=== PATIENT | male | born 1945 | race Caucasian/White ===

== ENCOUNTER 2016-09-16 07:36 | Inpatient (IN) ==
[2016-09-16 08:13] LABS: Basophils # 0.1 K/mcL (0.0-0.2); Basophils % 0.4 %; Eosinophils # 0.1 K/mcL (0.0-0.6); Eosinophils % 0.4 %; Hematocrit 45.9 % (37.5-50.1); Hemoglobin 15.9 g/dL (12.9-16.9); Immature Granulocytes % 0.5 % (0-4); Lymphocytes # 1.5 K/mcL (0.6-4.6); Lymphocytes % 12.4 %; Mean Corpuscular HGB Conc 34.6 g/dL (31.6-35.5); Mean Corpuscular Hemoglobin 30.3 pg (28.0-33.3); Mean Corpuscular Volume 87.6 fL (83.0-100.0); Mean Platelet Volume 9.2 fL (9.4-12.4); Monocytes # 0.7 K/mcL (0.0-1.3); Monocytes % 5.9 %; Neutrophils # 9.4 K/mcL (1.6-8.9); Platelet Count 220 K/mcL (140-400); Red Blood Count 5.24 M/mcL (4.19-5.50); Red Cell Distribution Width 13.4 % (11.5-14.5); Segmented Neutrophils % 80.4 %
[2016-09-16 08:18] LABS: INR 1.1; Prothrombin Time 12.2 Seconds (9.4-12.1)
[2016-09-16 08:20] LABS: Activated Partial Thrombo Time 28.1 Seconds (26.0-36.0)
[2016-09-16] MEDS ORDERED: *HR* HYDROmorphone (PF) 1 MG/ML SYRINGE IVP ONE ×2 (08:21→09:31)
[2016-09-16] MEDS ORDERED: Ondansetron 4 MG/2 ML VIAL IVP ONE (08:21)
[2016-09-16] MEDS ORDERED: Aspirin 81 MG TAB.CHEW PO ONE (08:22)
[2016-09-16 08:26] LABS: BUN/Creatinine Ratio 24 (6-26); Blood Urea Nitrogen 28 mg/dL (8-26); Calcium 9.4 mg/dL (8.6-10.8); Carbon Dioxide 18 mEq/L (19-29); Chloride 101 mEq/L (98-109); Glucose 294 mg/dL (70-99); Osmolality,Calculated 296 (280-300); Potassium 4.5 mEq/L (3.5-4.5); Sodium 135 mEq/L (136-145); eGFR For African Americans > 60 (> 60); eGFR For Non-African Americans > 60 (> 60)
--- NOTE | 2016-09-16 08:32 | Emergency Department Note ---
Disposition Clinical Impression: Chest pain, Terrance infection of genital region Disposition: Admitted As Inpatient Condition: Fair Time of Disposition: 10:05 Chest Pain HPI - General Chief Complaint: ED Chest Pain Stated Complaint: Chest Pain Time Seen by Provider: 09/16/16 07:39 Source: patient, family Mode of arrival: ambulatory Limitations: no limitations Vital Signs Reviewed: Yes Nursing Notes Reviewed: Yes - History of Present Illness HPI Narrative: Patient is a 71-year-old male with a past medical history of hypertension, diabetes, heart disease, GERD, [place] and kidney stones that presents the ED with chief complaint intermittent left-sided chest pain and left flank pain with associated nausea and vomiting and shortness of breath x 2 days. States symptoms became more severe and persistent this morning. Describes pain as heaviness to the left side of his chest with intermittent radiation down his left arm. States similar symptoms previously with a heart attack. Patient denies any fever, abdominal pain, chills, diarrhea or cough. Does report some dysuria. States he was recently diagnosed with a yeast infection in his groin. Patient was prescribed fluconazole but has not taken any of the medication yet secondary to just picking up from the pharmacy this morning per . Pt complaint: chest pain Onset (ago): day(s) Duration: constant Onset: during rest Pain Location: left chest Severity: severe Severity scale (1-10): 10 Quality: heaviness, dull, similar to prior [place] Pain Radiation: LUE Improves with: nothing Worsens with: nothing Associated symptoms: Reports: nausea, vomiting, dyspnea. Denies: diaphoresis, sense of impending doom, syncope, palpitations, fever, cough, leg swelling Treatments prior to arrival chest pain: aspirin ( states she gave him an aspirin prior to arrival but he vomited it up.) - Related Data Home Medications Medication Instructions Recorded Confirmed Aspirin Enteric Coated [Aspirin EC] 81 mg PO DAILY 02/08/15 09/16/16 Gabapentin [Neurontin] 300 mg PO TID 02/08/15 09/16/16 Insulin Glargine [Lantus] 100 units SQ QPM 02/08/15 09/16/16 Levothyroxine [Synthroid] 50 mcg PO QAM 02/08/15 09/16/16 Potassium Citrate [Urocit-K] 10 meq PO BID 02/08/15 09/16/16 Tamsulosin [Flomax] 0.4 mg PO DAILY 02/08/15 09/16/16 Atorvastatin Calcium [Lipitor] 80 mg PO HS 09/16/16 09/16/16 BuPROPion SR (12 HR) [Wellbutrin 200 mg PO BID 09/16/16 09/16/16 SR] Fluconazole [Diflucan] 100 mg PO DAILY 09/16/16 09/16/16 Losartan Potassium [Cozaar] 50 mg PO DAILY 09/16/16 09/16/16 Metformin HCl [Metformin HCl ER] 1,000 mg PO BID 09/16/16 09/16/16 Anshu/Poly/HC *EAR* SOLN 3 - 4 drop LEFT EAR BID 09/16/16 09/16/16 [Cortisporin *EAR* SOLN] Nystatin POWDER [Nystop] 1 appl TP BID 09/16/16 09/16/16 Sertraline [Zoloft] 100 mg PO DAILY 09/16/16 09/16/16 Allergies Allergy/AdvReac Type Severity Reaction Status Date / Time aspirin [ASA] Allergy Swelling Verified 11/21/14 12:58 of Lip/Tongue/Throat metoprolol [From Lopressor] Allergy See Verified 11/21/14 12:58 Comments morphine Allergy See Verified 11/21/14 12:58 Comments All systems ED: reviewed and negative except as stated. Constitutional: Denies: fever, chills, weakness Eyes: Denies: eye pain, eye discharge ENT ED: Denies: ear pain, throat pain, congestion Cardiovascular: Reports: chest pain. Denies: palpitations, dyspnea on exertion , orthopnea, edema, syncope, paroxysmal nocturnal dyspnea Respiratory: Reports: dyspnea. Denies: cough, wheezes, hemoptysis, sputum production Gastrointestinal: Reports: nausea, vomiting. Denies: abdominal pain, diarrhea, constipation, hematemesis, melena, hematochezia Genitourinary: Reports: dysuria. Denies: urgency, frequency, hematuria, discharge, testicular pain, genital lesions Musculoskeletal: Reports: back pain (Left flank pain) Integumentary: Denies: rash Neurological: Reports: weakness (Analyze weakness). Denies: headache, numbness , paresthesias Endocrine: Denies: fatigue Chest Pain PMH - Past Medical History Medical history: Reports: arthritis, diabetes, GERD, hypertension, kidney stones , myocardial infarction, thyroid disease Surgical history: Reports: angioplasty/stent, herniorrhaphy, other Psychiatric history: Reports: depression - Social History Smoking Status: Former smoker Alcohol use: Reports: none Drug use: Reports: none Physical Exam - General Limitations: no limitations General appearance: alert, other (Mild discomfort) - Head Head exam: atraumatic, normocephalic, normal inspection - Eye Eye exam: Present: normal appearance - ENT ENT exam: normal oropharynx, mucous membranes moist - Neck Neck exam: Present: normal inspection, full ROM. Absent: tenderness, meningismus - Chest Chest inspection: Present: normal inspection, symmetric chest wall rise. Absent : tenderness, rash - Respiratory Respiratory exam: Present: normal lung sounds bilaterally. Absent: respiratory distress, wheezes, stridor, accessory muscle use, prolonged expiratory phase - Cardiovascular Cardiovascular exam: Present: regular rate, normal rhythm, normal heart sounds - Abdominal Exam Abdominal exam: Present: soft, Non-Tender, normal bowel sounds. Absent: tenderness, distention, guarding, rebound, rigidity - Extremities Exam Extremities exam: Present: normal inspection, full ROM. Absent: tenderness, pedal edema - Expanded Lower Extremity Exam Gait: observed and normal - Back Exam Back exam: Present: normal inspection, full ROM, tenderness, CVA tenderness (R) , CVA tenderness (L), muscle spasm (lumbar), paraspinal tenderness (lumbar), vertebral tenderness (lumbar). Absent: rashes - Neurological Exam Neurological exam: Present: alert, oriented X3, CN II-XII intact - Psychiatric Psychiatric exam: Present: normal affect, normal mood - Skin Skin exam: Present: warm, dry, intact, normal color. Absent: rash, cyanosis, diaphoresis Course Course Narrative: Patient is a 71-year-old male with a past medical history of hypertension, diabetes, heart disease, GERD, [place] and kidney stones that presents the ED with chief complaint intermittent left-sided chest pain and left flank pain with associated nausea and vomiting and shortness of breath x 2 days. States symptoms became more severe and persistent this morning. Describes pain as heaviness to the left side of his chest with intermittent radiation down his left arm. States similar symptoms previously with a heart attack. Patient denies any fever, abdominal pain, chills, diarrhea or cough. Does report some dysuria. States he was recently diagnosed with a yeast infection in his groin. Patient was prescribed fluconazole but has not taken any of the medication yet secondary to just picking up from the pharmacy this morning per . Patient is a 71-year-old male. Vital stable. Afebrile. Alert and oriented 3. Appears in no acute distress. Head normocephalic. No signs of external trauma. Eyes normal inspection. PERRL. EOM intact. ENT within normal limits. Neck supple, full range of motion, nontender. Heart RRR. Lungs CTAB. No wheezing, stridor, retractions or any signs of respiratory distress/ compromise. Normal rise and fall chest wall. Abdomen obese, uncomplicated umbilical hernia. non tender. Normal bowel sounds. Back normal inspection, lumbar paraspinal muscle/vert point tenderness. Reproducible pain with palpation to left and right flank. States he always has back pain secondary to a herniated disc. Genital exam performed with at bedside. Patient does has terrance noted to left and right groin region. No penile or scrotum involved. No secondary infection noted. Neuro no focal neurological deficits noted on exam. Workup Initiated at this time. EKG sinus bradycardia. Reviewed previous EKG from 05/19/2014. Discussed aspirin allergy with and patient. Patient and states he is really not allergic. states occasionally they think it causes his genital region to swell. states he takes it all the time without any issues. Risk vs benefits discussed. ASA given. Dilaudid given for pain. Plan to reevaluate. Chest x-ray shows no acute cardiopulmonary abnormalities. Trop 0.02 CT abdomen and pelvis with IV contrast shows asymmetric wall thickening at the left bladder wall and circumferential thickening of the left ureter, similar to the prior exam in 2014. Findings are nonspecific and could be postinflammatory. A urothelial neoplasm should be excluded. Left renal nonobstructing 13 mm calculus. No hydroureteronephrosis. No acute abnormalities in the abdomen or pelvis. UA moderate blood, large leuks, moderate epithelial cells, urine bacteria none seen. Will culture at this time. Will not place pt on Diflucan 150 mg and no other antibiotics at this time. HEART SCORE 6. Discussed labs and imaging with patient. Patient was given additional Dilaudid for pain. Pain is now a 0 out of 10. At this time will admit to medicine for a chest pain rule out. Patient and agree with treatment plan. Discussed case with the Hospitalist. He will accept pt. No other request at this time. Discussed case with Dr. Benedict. He had [id number] time with patient and agrees with my assessment and treatment plan. Vital Signs Temperature 98.0 F 09/16/16 07:46 Pulse Rate 58 09/16/16 07:46 Respiratory Rate 18 09/16/16 07:46 Blood Pressure 145/67 09/16/16 07:46 O2 Sat by Pulse Oximetry 100 09/16/16 07:46 Temperature 98.0 F 09/16/16 07:46 Pulse Rate 58 09/16/16 09:58 Respiratory Rate 18 09/16/16 09:58 Blood Pressure 150/74 09/16/16 09:58 O2 Sat by Pulse Oximetry 98 09/16/16 09:58 Oxygen Delivery Oxygen Delivery Room Air Chest Pain - Medical Records Medical records reviewed: Yes I reviewed the patient's medical records. - Lab Data Lab results reviewed: Yes I reviewed the patient's lab results. Result diagrams: 09/16/16 08:05 09/16/16 08:05 Lab Results 09/16/16 09/16/16 09/16/16 Range/Units 07:50 08:05 08:05 WBC 11.7 H (4.3-11.1) K/mcL RBC 5.24 (4.19-5.50) M/mcL Hgb 15.9 (12.9-16.9) g/dL Hct 45.9 (37.5-50.1) % MCV 87.6 (83.0-100.0) fL MCH 30.3 (28.0-33.3) pg MCHC 34.6 (31.6-35.5) g/dL RDW 13.4 (11.5-14.5) % Plt Count 220 (140-400) K/mcL MPV 9.2 L (9.4-12.4) fL Immature Gran % 0.5 (0-4) % Seg Neutrophils % 80.4 % Lymphocytes % 12.4 % Monocytes % 5.9 % Eosinophils % 0.4 % Basophils % 0.4 % Neutrophils # 9.4 H (1.6-8.9) K/mcL Lymphocytes # 1.5 (0.6-4.6) K/mcL Monocytes # 0.7 (0.0-1.3) K/mcL Eosinophils # 0.1 (0.0-0.6) K/mcL Basophils # 0.1 (0.0-0.2) K/mcL PT 12.2 H (9.4-12.1) Seconds INR 1.1 APTT 28.1 (26.0-36.0) Seconds Sodium (136-145) mEq/L Potassium (3.5-4.5) mEq/L Chloride (98-109) mEq/L Carbon Dioxide (19-29) mEq/L BUN (8-26) mg/dL Creatinine (0.72-1.25) mg/dL Est GFR ( Amer) (> 60) Est GFR (Non-Af Amer) (> 60) BUN/Creatinine Ratio (6-26) Glucose (70-99) mg/dL POC Glucose 277 H (58-89) Calculated Osmolality (280-300) Calcium (8.6-10.8) mg/dL Troponin I (0-0.03) ng/mL Urine Color (Yellow) Urine Clarity (Clear) Urine pH (5.0-8.0) pH Units Ur Specific [place] (1.010-1.025) Urine Protein (Neg-Trace) mg/dL Urine Glucose (UA) (Normal) mg/dL Urine Ketones (Negative) mg/dL Urine Blood (Negative) Urine Nitrite (Negative) Urine Bilirubin (Negative) Urine Urobilinogen (Normal) mg/dL Ur Leukocyte Esterase (Negative) Urine Microscopic RBC (0-3) per hpf Urine Microscopic WBC (0-3) per hpf Ur Squamous Epith Cells (None-Few) per lpf Urine Bacteria (None-Few) per hpf Hyaline Casts (None-Few) per lpf Urine Yeast (None Seen) per hpf Ur Culture Indicated? (NO) 09/16/16 09/16/16 09/16/16 Range/Units 08:05 08:05 08:48 WBC (4.3-11.1) K/mcL RBC (4.19-5.50) M/mcL Hgb (12.9-16.9) g/dL Hct (37.5-50.1) % MCV (83.0-100.0) fL MCH (28.0-33.3) pg MCHC (31.6-35.5) g/dL RDW (11.5-14.5) % Plt Count (140-400) K/mcL MPV (9.4-12.4) fL Immature Gran % (0-4) % Seg Neutrophils % % Lymphocytes % % Monocytes % % Eosinophils % % Basophils % % Neutrophils # (1.6-8.9) K/mcL Lymphocytes # (0.6-4.6) K/mcL Monocytes # (0.0-1.3) K/mcL Eosinophils # (0.0-0.6) K/mcL Basophils # (0.0-0.2) K/mcL PT (9.4-12.1) Seconds INR APTT (26.0-36.0) Seconds Sodium 135 L (136-145) mEq/L Potassium 4.5 (3.5-4.5) mEq/L Chloride 101 (98-109) mEq/L Carbon Dioxide 18 L (19-29) mEq/L BUN 28 H (8-26) mg/dL Creatinine 1.19 (0.72-1.25) mg/dL Est GFR ( Amer) > 60 (> 60) Est GFR (Non-Af Amer) > 60 (> 60) BUN/Creatinine Ratio 24 (6-26) Glucose 294 H (70-99) mg/dL POC Glucose (58-89) Calculated Osmolality 296 (280-300) Calcium 9.4 (8.6-10.8) mg/dL Troponin I 0.02 (0-0.03) ng/mL Urine Color Yellow (Yellow) Urine Clarity Turbid A (Clear) Urine pH 6.0 (5.0-8.0) pH Units Ur Specific [place] > 1.030 H (1.010-1.025) Urine Protein 30 H (Neg-Trace) mg/dL Urine Glucose (UA) >=1000 H (Normal) mg/dL Urine Ketones 80 H (Negative) mg/dL Urine Blood Moderate H (Negative) Urine Nitrite Negative (Negative) Urine Bilirubin Negative (Negative) Urine Urobilinogen Normal (Normal) mg/dL Ur Leukocyte Esterase Large H (Negative) Urine Microscopic RBC 0-3 (0-3) per hpf Urine Microscopic WBC TNTC H (0-3) per hpf Ur Squamous Epith Cells Moderate H (None-Few) per lpf Urine Bacteria None Seen (None-Few) per hpf Hyaline Casts Few (None-Few) per lpf Urine Yeast Many H (None Seen) per hpf Ur Culture Indicated? YES A (NO) - Radiology Data Radiology results reviewed: Yes I reviewed the patient's radiology results. - EKG Data EKG attestation: Yes I reviewed and interpreted this EKG. EKG shows normal: sinus rhythm Rate: bradycardia Rhythm: NSR [place]/QRS: normal When compared to previous EKG there are: no significant changes Interpretation: no acute changes Heart Score - Score History: Highly Suspicious EKG: Normal Age: Greater than 65 Risk Factors: Equal/Greater than 3 risk factor or history of atherosclerotic disease Troponin: Less than normal limit HEART Score Total: 6 Attestation Statement - Attestation Attestation: [id number] time completed at the bedside of the patient. Detailed review the presentation symptoms medical history were discussed and reviewed with the mid- level provider Melissa Benedict PA-C/YASMIN. Medical intervention labs and imaging studies were reviewed in detail. See full documentation of physical exam and course of care in the mid-level provider's note. I agree with the determined course of care medical intervention and disposition forth by the mid-level provider. 73-year-old male presents emergency room complaining of left-sided flank pain radiating up in his left chest wall. Described it as similar to his previous heart attack. Multiple stenting performed in the past. Patient also has a nonobstructive renal calculi in the left kidney that he knows is present. He is unsure which one it is at this time but was more concerned about his heart. Detailed evaluation including cardiac evaluation with ECG chest x-ray were ordered. Troponin and basic laboratory workup including urinalysis ordered this time. Aspirin to be given and allergies reviewed and is not truly an allergy and patient takes aspirin at home. CT imaging of the abdomen was reviewed in detail showing no acute signs of obstructive pathology mild inflammation of bladder wall but nothing else intra-abdominally. No acute signs of aneurysm or dissection based on exam. Symptoms of uncontrolled. Vital signs are stable patient is chronically bradycardic but otherwise has no other acute symptoms or distress. Concern is noted for acute coronary syndrome requiring rule out at this time. His heart score is elevated at 6. Detailed discussion was reviewed with the mid-level provider Melissa and recommendation for admission to be completed. Patient is comfortable with this plan. I discussed this in detail with the patient and family at the bedside. No other acute pathology noted during this evaluation or treatment course requiring further intervention. Symptoms could be secondary to renal colic or acute coronary syndrome disposition to be determined while patient palacios reviewed and evaluated in the inpatient setting.s
[2016-09-16 09:32] LABS: Bilirubin,Urine Negative (Negative); Blood,Urine Moderate (Negative); Clarity,Urine Turbid (Clear); Color,Urine Yellow (Yellow); Glucose,Urine (UA) >=1000 mg/dL (Normal); Ketones,Urine 80 mg/dL (Negative); Leukocyte Esterase,Urine Large (Negative); Nitrite,Urine Negative (Negative); Protein,Urine 30 mg/dL (Neg-Trace); Specific Gravity,Urine > 1.030 (1.010-1.025); Urobilinogen,Urine Normal (Normal)
[2016-09-16 09:35] LABS: Bacteria,Urine None Seen per hpf (None-Few); Hyaline Casts,Urine Few per lpf (None-Few); Squamous Epithelial Cell,Urine Moderate per lpf (None-Few); WBC,Urine TNTC per hpf (0-3)
[2016-09-16 09:47] LABS: RBC,Urine 0-3 per hpf (0-3); Yeast,Urine Many per hpf (None Seen)
[2016-09-16] MEDS ORDERED: Fluconazole 100 MG TABLET PO ONE (09:53)
[2016-09-16] MEDS ORDERED: Ondansetron 4 MG/2 ML VIAL IVP PRN (11:36)
[2016-09-16] MEDS ORDERED: Acetaminophen 325 MG TABLET PO PRN (11:36)
[2016-09-16] MEDS ORDERED: Naloxone 0.4 MG/ML INJ IVP PRN (11:36)
[2016-09-16] MEDS ORDERED: *HR* Morphine 2 MG/ML SYRINGE IVP PRN ×2 (11:36→12:27)
[2016-09-16] MEDS ORDERED: Dextrose Gel 15 GM PO PRN ×2 (11:41)
[2016-09-16] MEDS ORDERED: *HR* Dextrose 50 % in Water (Syg) 50 ML SYRINGE IVP PRN (11:41)
[2016-09-16] MEDS ORDERED: D5% in Water 1,000 ML IVC PRN (11:41)
[2016-09-16] MEDS ORDERED: Nitroglycerin 0.4 MG TAB.SUBL SL PRN (11:54)
[2016-09-16] MEDS ORDERED: Insulin LISPRO 300 UNITS/3 ML VIAL SQ SCH ×2 (12:00→17:00)
--- NOTE | 2016-09-16 12:07 | Internal Med History&Physical ---
Date of Encounter: 09/16/16 Time of Encounter: 11:45 Assessment and Plan (1) Chest pain Current visit: Yes Status: Acute Left-sided Chest pain with radiation to her left upper extremity - rule out ACS Continue aspirin and statin Echocardiogram pending Stress test pending EKG - normal sinus rhythm with no acute ST-T changes Troponin - 0.02, trend Chest x-ray - no acute cardio pulmonary process CT abdomen and pelvis - left renal nonobstructing 13 mm renal calculus, no other acute abnormalities Labs in a.m. Qualifiers: Chest pain type: unspecified Qualified Code(s): R07.9 - Chest pain, unspecified (2) Renal calculi Current visit: Yes Status: Acute History of recurrent renal calculi CT abdomen and pelvis - left renal nonobstructing 13 mm calculus with no hydroureteronephrosis Urology consult (3) UTI (urinary tract infection) Current visit: Yes Status: Acute UTI present on admission, possibly gram-negative bacteria, possibly due to renal calculi UA - leukocyte esterase positive Empiric IV Rocephin Cultures pending Qualifiers: Urinary tract infection type: acute cystitis Hematuria presence: without hematuria Qualified Code(s): N30.00 - Acute cystitis without hematuria (4) CAD (coronary artery disease) Current visit: Yes Status: Chronic History of [place] - status post stents Continue aspirin and statin Qualifiers: Coronary Disease-Associated Artery/Lesion type: unspecified vessel or lesion type [place] vs. transplanted heart: [place] heart Associated angina: with unspecified angina Qualified Code(s): I25.119 - Atherosclerotic heart disease of [place] coronary artery with unspecified angina pectoris (5) Hypertension Current visit: Yes Status: Chronic Essential hypertension, controlled, continue home meds, monitor Qualifiers: Hypertension type: essential hypertension Qualified Code(s): I10 - Essential (primary) hypertension (6) Type 2 diabetes mellitus Current visit: Yes Status: Chronic Type 2 diabetes, insulin-dependent, hypoglycemia Insulin sliding scale, Levemir, glucose checks Qualifiers: Diabetes mellitus complication status: without complication Diabetes mellitus nursing home insulin use: with nursing home use Qualified Code(s): E11.9 - Type 2 diabetes mellitus without complications; Z79.4 - termite treater helper (current) use of insulin (7) Catherine infection of genital region Current visit: Yes Status: Acute Continue fluconazole (8) DVT prophylaxis Current visit: Yes Status: Acute Continue heparin subcutaneous Internal Medicine - H&P: HPI Chief complaint: Chest pain Admitted From: Emergency Dept History of present illness: Mr. Pate is a 71 year old male with past medical history of diabetes, GERD, hypertension, coronary artery disease status post stents, arthritis, thyroid disease, depression and history of kidney stones. Patient presents to the ED with complaints of left-sided chest pain and left flank pain. Symptoms started about 2 days ago and have gradually worsened. Patient apparently woke up this morning had about 4 episodes of vomiting and complained about severe chest pain which was radiating to left upper extremity. No aggravating or alleviating factors. No other associated symptoms. Pain is almost constant and present even at rest. Patient denies shortness of breath, denies palpitations, denies headache or lightheadedness denies abdominal pain or diarrhea or fever. No other complaints In the ER patient was given Dilaudid and aspirin, and patient's pain has now resolved. On examination patient is awake and alert. He is not in any distress. Able to provide history. is at bedside and she also provides history. Patient had an TN and 2 stents in the past. As per patient also has recurrent renal calculi and has had procedures done in the past. He was also recently diagnosed with a yeast infection in his groin and has been prescribed fluconazole by his PCP. Patient takes aspirin and atorvastatin at home. Initial EKG done in the ER shows sinus pericardia and no acute ST-T changes. Chest x-ray does not show any acute cardiopulmonary abnormalities. Initial troponin is negative. His abdomen revealed left renal nonobstructing 13 mm calculus with no hydroureteronephrosis. Patient is being admitted for chest pain to rule out ACS. Nuclear stress test has been ordered. Troponin to be trended. Repeat EKG in a.m. Patient and his have been explained about his condition and plan of care. They understood and agreed. No unanswered questions. CODE STATUS full code. Past Med Surg Social Fam HX - Past Medical History Medical history: arthritis, diabetes, GERD, hypertension, kidney stones, myocardial infarction, thyroid disease Psychiatric history: depression - Past Surgical History Surgical History: angioplasty/stent, cataract, herniorrhaphy, other - Social History Smoking Status: Former smoker Smokeless Tobacco Status: No Alcohol use: none Drug use: none - Family History Mother Hx Family Cardiac Disorders: Yes Hx Family Cancer: Yes ("Female") Hx Family Endocrine Disorder: Yes (DM) Father Hx Family Cancer: Yes (Bladder) Internal Medicine - H&P: Meds Aspirin Enteric Coated [Aspirin EC] 81 mg PO DAILY 02/08/15 [History] Gabapentin [Neurontin] 300 mg PO TID 02/08/15 [History] Insulin Glargine [Lantus] 100 units SQ QPM 02/08/15 [History] Levothyroxine [Synthroid] 50 mcg PO QAM 02/08/15 [History] Potassium Citrate [Urocit-K] 10 meq PO BID 02/08/15 [History] Tamsulosin [Flomax] 0.4 mg PO DAILY 02/08/15 [History] Atorvastatin Calcium [Lipitor] 80 mg PO HS 09/16/16 [History] BuPROPion SR (12 HR) [Wellbutrin SR] 200 mg PO BID 09/16/16 [History] Fluconazole [Diflucan] 100 mg PO DAILY 09/16/16 [History] Losartan Potassium [Cozaar] 50 mg PO DAILY 09/16/16 [History] Metformin HCl [Metformin HCl ER] 1,000 mg PO BID 09/16/16 [History] Anshu/Poly/HC *EAR* SOLN [Cortisporin *EAR* SOLN] 3 - 4 drop LEFT EAR BID [History] Nystatin POWDER [Nystop] 1 appl TP BID 09/16/16 [History] Sertraline [Zoloft] 100 mg PO DAILY 09/16/16 [History] Allergies aspirin [ASA] Allergy (Verified 11/21/14 12:58) Swelling of Lip/Tongue/Throat metoprolol [From Lopressor] Allergy (Verified 11/21/14 12:58) See Comments No reaction listed per H&P morphine Adverse Reaction (Verified 09/16/16 12:26) See Comments Vomiting All Systems PM: A 10-system review of systems was performed and is negative for pertinent findings except as documented above in the HPI. - Constitutional Constitutional: fatigue, weakness, no fever(s) - EENT Eyes: no blurry vision, no loss of vision - Cardiovascular Cardiovascular ROS IM: chest pain, no diaphoresis, no dyspnea, no dyspnea on exertion, no orthopnea, no syncope - Respiratory Respiratory: no dyspnea, no dyspnea on exertion, no wheezing, no chest congestion - Gastrointestinal Gastrointestinal: abdominal pain, nausea, vomiting, no cramping, no diarrhea, no melena - Genitourinary Genitourinary ROS male: flank pain (Left-sided), no dysuria - Musculoskeletal Musculoskeletal ROS IM: no arthralgias - Neurological Neurological ROS: no abnormal gait, no abnormal speech, no focal weakness, no loss of vision, no weakness - Constitutional Vitals: Temp Pulse Resp BP Pulse Ox 97.5 F L 56 15 151/77 95 09/16/16 11:15 09/16/16 11:15 09/16/16 11:15 09/16/16 11:15 09/16/16 11:15 General appearance: Present: A&O X 3, pleasant, no acute distress, obese, answers questions appropriately - Head Head exam: Present: atraumatic - Eye Eye exam: Present: EOMI - Neck Neck exam general surgery: Present: supple - Respiratory Respiratory exam: Present: CTAB. Absent: rales, rhonchi, wheezes, tachypnea - Cardiovascular Cardiovascular exam: Present: RRR, +S1, +S2 - GI/Abdominal GI/Abdominal exam: Present: soft, no peritoneal signs. Absent: distended, firm , guarding, rigid, tenderness Additional comments: No left flank tenderness - Extremities Exam Extremities exam: Present: radial pulses palpable and symetrical. Absent: cyanotic, pedal edema, tenderness - Neurological Exam Neurological exam: Present: alert, oriented X3, no focal deficits Internal Med - H&P Results - Labs CBC & Chem 7: 09/16/16 08:05 09/16/16 08:05
[2016-09-16] MEDS: *HR* Heparin 5,000 UNIT/ML VIAL SQ SCH ×2 (12:42→17:33)
[2016-09-16 12:51] LABS: Hemoglobin A1C 7.2 %
[2016-09-16] MEDS: Insulin LISPRO 300 UNITS/3 ML VIAL SQ SCH ×3 (12:53→21:25)
[2016-09-16] MEDS: Gabapentin 300 MG CAPSULE PO SCH ×3 (15:24→20:53)
[2016-09-16] MEDS: Famotidine 20 MG TABLET PO SCH ×2 (15:24→15:27)
[2016-09-16] MEDS: Insulin DETEMIR 100 UNIT/ML X5UNITS SQ SCH (17:54)
[2016-09-16] MEDS: BuPROPion SR (12 HR) 100 MG TABLET PO SCH (20:52)
[2016-09-16] MEDS: Nystatin POWDER 30 GM BOTTLE TP SCH (20:53)
[2016-09-16] MEDS: Potassium Citrate 10 MEQ TABLET.ER PO SCH (20:53)
[2016-09-17 05:38] LABS: Basophils # 0.1 K/mcL (0.0-0.2); Basophils % 0.3 %; Eosinophils % 0.1 %; Hematocrit 42.8 % (37.5-50.1); Hemoglobin 14.6 g/dL (12.9-16.9); Immature Granulocytes % 0.3 % (0-4); Lymphocytes # 1.4 K/mcL (0.6-4.6); Lymphocytes % 9.3 %; Mean Corpuscular HGB Conc 34.1 g/dL (31.6-35.5); Mean Corpuscular Volume 90.9 fL (83.0-100.0); Mean Platelet Volume 9.5 fL (9.4-12.4); Monocytes # 1.4 K/mcL (0.0-1.3); Monocytes % 9.4 %; Neutrophils # 11.9 K/mcL (1.6-8.9); Platelet Count 175 K/mcL (140-400); Red Blood Count 4.71 M/mcL (4.19-5.50); Red Cell Distribution Width 13.7 % (11.5-14.5); Segmented Neutrophils % 80.6 %
[2016-09-17] MEDS: *HR* Heparin 5,000 UNIT/ML VIAL SQ SCH ×2 (05:41→17:12)
[2016-09-17] MEDS ORDERED: Regadenoson 0.4 MG/5 ML SYRINGE IVP ONE (05:46)
[2016-09-17 05:56] LABS: BUN/Creatinine Ratio 22 (6-26); Blood Urea Nitrogen 22 mg/dL (8-26); Calcium 9.1 mg/dL (8.6-10.8); Carbon Dioxide 25 mEq/L (19-29); Chloride 103 mEq/L (98-109); Chol/HDL Ratio 2.2 (0-4.9); Glucose 156 mg/dL (70-99); HDL Cholesterol 36 mg/dL (40-59); LDL Cholesterol,Calculated 29 mg/dL (0-99); Osmolality,Calculated 287 (280-300); Potassium 4.1 mEq/L (3.5-4.5); Sodium 135 mEq/L (136-145); Triglycerides 69 mg/dL (< 150); eGFR For African Americans > 60 (> 60); eGFR For Non-African Americans > 60 (> 60)
[2016-09-17 06:04] LABS: Cholesterol 79 mg/dL (< 200)
--- NOTE | 2016-09-17 06:48 | Urology - Consult Note ---
Date of Encounter: 09/17/16 Time of Encounter: 06:46 - Assessment and Plan (1) Bladder wall thickening Current Visit: Yes Status: Acute Assessment and plan: 71-year-old man with concern for left bladder wall thickening. I would consider proceeding with a cystoscopy and bladder biopsy on an elective basis once he has been discharged from the hospital. He is not having any hematuria at this time. He agrees to this plan. 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 This has been difficult to access in the past with ureteroscopy. He has been asymptomatic and the stone has been stable since 2015. I discussed with him possibly returning to the OR for both a cystoscopy and bladder biopsy and then proceeding with a left redo ureteroscopy in an attempt to open up the neck of the diverticulum to treat the stone. This does not need to be performed while he is an inpatient. We can discuss further as an outpatient. (3) UTI (urinary tract infection) Current Visit: Yes Status: Acute Assessment and plan: Urine culture is pending. He is currently on antibiotic. We will monitor for now. Qualifiers: Urinary tract infection type: acute cystitis Hematuria presence: without hematuria Qualified Code(s): N30.00 - Acute cystitis without hematuria Urology CN:HPI Consult date: 09/17/16 Reason for consult Urology: Other (nephrolithiasis, bladder wall thickening.) History of present illness: 71-year-old man well known to me was admitted for abdominal pain and possible urinary tract infection. A CT scan showed evidence of stone within his left kidney and evidence of bladder wall thickening along the left side of the bladder. He has a known stone history. In 2015 I performed a left ureteroscopy, laser lithotripsy, and stent placement. The stone seen on the most recent CT scan is located in the calyceal diverticulum which was difficult to access at his previous ureteroscopy. We have been observing the stone since then. He has not had any left-sided flank pain related to the stone. I reviewed the CT scan. There appears to be some bladder wall thickening which has remained stable from his prior CT scans. This is located along the left wall of the bladder. He mentions some abdominal pain. He had a slight troponin leak upon admission which is being observed. Past Med Surg Social Fam HX - Past Medical History Medical history: arthritis, diabetes, GERD, hypertension, kidney stones, myocardial infarction, thyroid disease Psychiatric history: depression - Past Surgical History Surgical History: angioplasty/stent, cataract, herniorrhaphy, other - Social History Smoking Status: Former smoker Smokeless Tobacco Status: No Alcohol use: none Drug use: none - Family History Mother Hx Family Cardiac Disorders: Yes Hx Family Cancer: Yes ("Female") Hx Family Endocrine Disorder: Yes (DM) Father Hx Family Cancer: Yes (Bladder) Medications and Allergies Aspirin Enteric Coated [Aspirin EC] 81 mg PO DAILY 02/08/15 [History] Gabapentin [Neurontin] 300 mg PO TID 02/08/15 [History] Insulin Glargine [Lantus] 100 units SQ QPM 02/08/15 [History] Levothyroxine [Synthroid] 50 mcg PO QAM 02/08/15 [History] Potassium Citrate [Urocit-K] 10 meq PO BID 02/08/15 [History] Tamsulosin [Flomax] 0.4 mg PO DAILY 02/08/15 [History] Atorvastatin Calcium [Lipitor] 80 mg PO HS 09/16/16 [History] BuPROPion SR (12 HR) [Wellbutrin SR] 200 mg PO BID 09/16/16 [History] Fluconazole [Diflucan] 100 mg PO DAILY 09/16/16 [History] Losartan Potassium [Cozaar] 50 mg PO DAILY 09/16/16 [History] Metformin HCl [Metformin HCl ER] 1,000 mg PO BID 09/16/16 [History] Anshu/Poly/HC *EAR* SOLN [Cortisporin *EAR* SOLN] 3 - 4 drop LEFT EAR BID [History] Nystatin POWDER [Nystop] 1 appl TP BID 09/16/16 [History] Sertraline [Zoloft] 100 mg PO DAILY 09/16/16 [History] Allergies aspirin [ASA] Allergy (Verified 11/21/14 12:58) Swelling of Lip/Tongue/Throat metoprolol [From Lopressor] Allergy (Verified 11/21/14 12:58) See Comments No reaction listed per H&P morphine Adverse Reaction (Verified 09/16/16 12:26) See Comments Vomiting Review of Systems - Constitutional no chills, no fever(s) - EENT Nose, mouth and throat: no dizziness - Cardiovascular no chest pain - Respiratory no dyspnea - Gastrointestinal abdominal pain, nausea, no vomiting - Genitourinary no flank pain, no hematuria - Musculoskeletal no back pain - Integumentary no erythema, no rash - Neurological no weakness - Psychiatric no suicidal ideation - Hematologic/Lymphatic no easy bleeding - Allergic/Immunologic no wheezing Exam Initial Vital Signs Temp Pulse Resp BP Pulse Ox 98.0 F 58 18 145/67 100 09/16/16 07:46 09/16/16 07:46 09/16/16 07:46 09/16/16 07:46 09/16/16 07:46 - General physical appearance Present: well developed, well nourished, no distress - Eyes Absent: icteric - ENT Present: normal nares - Neck Present: trachea midline - Respiratory Present: normal respiratory effort - Cardiovascular Cardiovascular exam IM: RRR - Abdomen Abdomen: Present: soft Urology Results - Labs 09/17/16 04:47 09/17/16 04:47 Abnormal lab results WBC 14.8 K/mcL (4.3-11.1) H 09/17/16 04:47 Neutrophils # 11.9 K/mcL (1.6-8.9) H 09/17/16 04:47 Monocytes # 1.4 K/mcL (0.0-1.3) H 09/17/16 04:47 PT 12.2 Seconds (9.4-12.1) H 09/16/16 08:05 Sodium 135 mEq/L (136-145) L 09/17/16 04:47 Glucose 156 mg/dL (70-99) H 09/17/16 04:47 POC Glucose 329 (58-89) H 09/16/16 22:39 Hemoglobin A1c 7.2 % (-5.6) H 09/16/16 08:05 Troponin I 0.06 ng/mL (0-0.03) H* 09/16/16 23:29 HDL Cholesterol 36 mg/dL (40-59) L 09/17/16 04:47 Urine Clarity Turbid (Clear) A 09/16/16 08:48 Ur Specific [place] > 1.030 (1.010-1.025) H 09/16/16 08:48 Urine Protein 30 mg/dL (Neg-Trace) H 09/16/16 08:48 Urine Glucose (UA) >=1000 mg/dL (Normal) H 09/16/16 08:48 Urine Ketones 80 mg/dL (Negative) H 09/16/16 08:48 Urine Blood Moderate (Negative) H 09/16/16 08:48 Ur Leukocyte Esterase Large (Negative) H 09/16/16 08:48 Urine Microscopic WBC TNTC per hpf (0-3) H 09/16/16 08:48 Ur Squamous Epith Cells Moderate per lpf (None-Few) H 09/16/16 08:48 Urine Yeast Many per hpf (None Seen) H 09/16/16 08:48 Ur Culture Indicated? YES (NO) A 09/16/16 08:48 Diabetes panel 09/17/16 Range/Units 04:47 Sodium 135 L (136-145) mEq/L Potassium 4.1 (3.5-4.5) mEq/L Chloride 103 (98-109) mEq/L Carbon Dioxide 25 (19-29) mEq/L BUN 22 (8-26) mg/dL Creatinine 1.01 (0.72-1.25) mg/dL Glucose 156 H (70-99) mg/dL Calcium 9.1 (8.6-10.8) mg/dL Triglycerides 69 (< 150) mg/dL HDL Cholesterol 36 L (40-59) mg/dL Calcium panel 09/17/16 Range/Units 04:47 Calcium 9.1 (8.6-10.8) mg/dL Pituitary panel 09/17/16 Range/Units 04:47 Sodium 135 L (136-145) mEq/L Potassium 4.1 (3.5-4.5) mEq/L Chloride 103 (98-109) mEq/L Carbon Dioxide 25 (19-29) mEq/L BUN 22 (8-26) mg/dL Creatinine 1.01 (0.72-1.25) mg/dL Glucose 156 H (70-99) mg/dL Calcium 9.1 (8.6-10.8) mg/dL Adrenal panel 09/17/16 Range/Units 04:47 Sodium 135 L (136-145) mEq/L Potassium 4.1 (3.5-4.5) mEq/L Chloride 103 (98-109) mEq/L Carbon Dioxide 25 (19-29) mEq/L BUN 22 (8-26) mg/dL Creatinine 1.01 (0.72-1.25) mg/dL Glucose 156 H (70-99) mg/dL Calcium 9.1 (8.6-10.8) mg/dL All other labs normal. - Imaging CT scan - abdomen: report reviewed, image reviewed CT scan - pelvis: report reviewed, image reviewed Consult Discharge Plan - Plan Referrals: Tony Yuan, SPECIFICATIONS WRITER [Primary Care Provider] -
[2016-09-17] MEDS: Insulin LISPRO 300 UNITS/3 ML VIAL SQ SCH ×4 (08:11→21:29)
[2016-09-17] MEDS: Fluconazole 100 MG TABLET PO SCH (08:20)
[2016-09-17] MEDS: Aspirin Enteric Coated 81 MG Tablet PO SCH (08:20)
[2016-09-17] MEDS: Famotidine 20 MG TABLET PO SCH ×2 (08:20→17:12)
[2016-09-17] MEDS: Gabapentin 300 MG CAPSULE PO SCH ×3 (08:21→20:02)
[2016-09-17] MEDS: Potassium Citrate 10 MEQ TABLET.ER PO SCH ×2 (08:21→20:02)
[2016-09-17] MEDS: BuPROPion SR (12 HR) 100 MG TABLET PO SCH ×2 (08:21→20:01)
[2016-09-17] MEDS: Nystatin POWDER 30 GM BOTTLE TP SCH ×2 (08:31→20:02)
--- NOTE | 2016-09-17 08:49 | Cardiology Consult Note ---
<Yahaira Carrasquillo Jabier - Last Filed: 09/17/16 08:59> Date of Encounter: 09/17/16 Time of Encounter: 08:30 Assessment and Plan (1) Elevated troponin Current Visit: Yes Status: Acute Troponin negative x2, 0.06, 0.06, 0.09 in the setting of leukocytosis, kidney stone, and UTI. Likely represents demand ischemia. No acute ischemic ECG changes, chest pain free upon exam. Reports atypical episode of chest discomfort 3-4 days ago. Will cancel stress test as patient CC is left flank pain and is very nauseated this AM. Reports reproducible RUQ pain/tenderness--primary service following. TTE shows preserved LVEF, 60% with normal wall motion. Continue medical therapy including asa and statin. Allergy to metoprolol. Follow-up with Dr. Lee in the outpatient setting for possible ischemic evaluation if appropriate. Anticipate sign-off from Cardiology once seen and evaluated by Dr. Pina. (2) CAD (coronary artery disease) Current Visit: Yes Status: Chronic Hx of CAD s/p PCI in 2010. EF preserved per TTE. Asa, statin. Allergy to metoprolol. Qualifiers: Coronary Disease-Associated Artery/Lesion type: [place] artery [place] vs. transplanted heart: [place] heart Associated angina: without angina Qualified Code(s): I25.10 - Atherosclerotic heart disease of [place] coronary artery without angina pectoris Discussion w patient/family: The assessment and plan as outlined above was discussed with the patient and/or family members who expressed understanding and agreement. All questions were answered. Thank you for involving us in the care of your patient. Please call with any questions. The patient will be discussed and reviewed with Dr. Pina; Cardiology will sign- off, please call with questions. Will arrange for hospital follow-up with Dr. Lee in 2-3 weeks. History of Present Illness Consult date: 09/17/16 Requesting physician: Yoli Moss Consult reason: Elevated troponin Chief complaint: Chest pain, left flank pain History of present illness: Mr. Pate is a 71 year old male with PMHx significant for CAD s/p PCI (2010), HTN, HLD, DMII, and chronic pain who presented to the ED with 1 week history of worsening abdominal and bilateral flank pain. Associated symptoms include weakness, fatigue, nausea and vomiting. He states he is primarily sedentary and bedridden due to pain. He does describe an episode of left-sided non-radiating chest discomfort that lasted 3-4 minutes, occurred at rest--this occurred once 3 -4 days ago. Cardiology consulted today for elevated troponin (initial x2 were negative). No acute ischemic ECG changes. Chest pain free upon exam. He reports persistent abdominal tenderness/pain with associated nausea upon exam. He states ASA is not an allergy. Prior CV testing: TTE 11/2010: EF >60% no significant valvular dysfunction. LHC 11/2010: LVEF 55-60% with hypokinesis of inferobasal wall; s/p successful PCI to mLCx and pRCA lesions; otherwise mild, non-obstructive CAD. Past Med Surg Social Fam HX - Past Medical History Attestation: Yes The following information was validated with the patient. Source: patient, old records reviewed Medical history: arthritis, coronary artery disease, diabetes, GERD, hypertension, kidney stones, myocardial infarction, thyroid disease Psychiatric history: depression - Past Surgical History Surgical History: angioplasty/stent, cataract, herniorrhaphy - Social History Smoking Status: Former smoker Smokeless Tobacco Status: No Alcohol use: none Drug use: none - Family History Mother Hx Family Cardiac Disorders: Yes Hx Family Cancer: Yes ("Female") Hx Family Endocrine Disorder: Yes (DM) Father Hx Family Cancer: Yes (Bladder) Medications and Allergies Aspirin Enteric Coated [Aspirin EC] 81 mg PO DAILY 02/08/15 [History] Gabapentin [Neurontin] 300 mg PO TID 02/08/15 [History] Insulin Glargine [Lantus] 100 units SQ QPM 02/08/15 [History] Levothyroxine [Synthroid] 50 mcg PO QAM 02/08/15 [History] Potassium Citrate [Urocit-K] 10 meq PO BID 02/08/15 [History] Tamsulosin [Flomax] 0.4 mg PO DAILY 02/08/15 [History] Atorvastatin Calcium [Lipitor] 80 mg PO HS 09/16/16 [History] BuPROPion SR (12 HR) [Wellbutrin SR] 200 mg PO BID 09/16/16 [History] Fluconazole [Diflucan] 100 mg PO DAILY 09/16/16 [History] Losartan Potassium [Cozaar] 50 mg PO DAILY 09/16/16 [History] Metformin HCl [Metformin HCl ER] 1,000 mg PO BID 09/16/16 [History] Anshu/Poly/HC *EAR* SOLN [Cortisporin *EAR* SOLN] 3 - 4 drop LEFT EAR BID [History] Nystatin POWDER [Nystop] 1 appl TP BID 09/16/16 [History] Sertraline [Zoloft] 100 mg PO DAILY 09/16/16 [History] Allergies aspirin [ASA] Allergy (Verified 11/21/14 12:58) Swelling of Lip/Tongue/Throat metoprolol [From Lopressor] Allergy (Verified 11/21/14 12:58) See Comments No reaction listed per H&P morphine Adverse Reaction (Verified 09/16/16 12:26) See Comments Vomiting All Systems Review: A 10-system review of systems was performed and is negative for pertinent findings except as documented above in the HPI. - Cardiovascular Cardiovascular: as per HPI Physical Examination Vital Signs, Last 4 Hours Temp Pulse Resp BP Pulse Ox 09/17/16 07:29 98.0 F 60 17 132/68 94 General: Conversant, Other (forgetful) Cardiac: Reg Rate and Rhythm, Normal S1 and S2 Lungs: Normal Breath Sounds Neuro: Alert and responsive Abdomen: Soft, Other (tender RUQ and RLQ) Skin: No rashes noted on visualized skin Extremities: No Edema, Normal Pulses Results 09/17/16 04:47 09/17/16 04:47 Lab Results 09/16/16 09/16/16 09/16/16 11:45 17:47 23:29 WBC Hgb Hct Plt Count Sodium Potassium Chloride Carbon Dioxide BUN Creatinine Glucose Calcium Troponin I 0.01 0.06 H* 0.06 H* 09/17/16 09/17/16 04:47 04:47 WBC 14.8 H Hgb 14.6 Hct 42.8 Plt Count 175 Sodium 135 L Potassium 4.1 Chloride 103 Carbon Dioxide 25 BUN 22 Creatinine 1.01 Glucose 156 H Calcium 9.1 Troponin I Active Medications Acetaminophen (Tylenol) 650 mg PO Q6HR PRN PRN Reason: Mild Pain (1-3) Stop: 03/18/17 11:37 Aspirin (Aspirin Ec) 81 mg PO DAILY [facility] Stop: 03/19/17 09:01 Last Admin: 09/17/16 08:20 Dose: 81 mg Atorvastatin Calcium (Lipitor) 80 mg PO HS [facility] Stop: 03/18/17 21:01 Last Admin: 09/16/16 20:52 Dose: 80 mg Bupropion HCl (Wellbutrin Sr) 200 mg PO BID [facility] Stop: 03/18/17 21:01 Last Admin: 09/17/16 08:21 Dose: 200 mg Dextrose/Water (Dextrose 50% (Syg)) 25 ml IVP AD PRN PRN Reason: Hypoglycemia Stop: 03/18/17 11:42 Docusate Sodium (Colace) 100 mg PO DAILY [facility] PRN Reason: Protocol Stop: 03/19/17 09:01 Famotidine (Pepcid) 20 mg PO BIDAC [facility] Stop: 03/18/17 16:31 Last Admin: 09/17/16 08:20 Dose: 20 mg Fluconazole (Diflucan) 100 mg PO DAILY [facility] Stop: 03/19/17 09:01 Last Admin: 09/17/16 08:20 Dose: 100 mg Gabapentin (Neurontin) 300 mg PO TID [facility] Stop: 03/18/17 15:01 Last Admin: 09/17/16 08:21 Dose: 300 mg Heparin Sodium (Porcine) (Heparin) 5,000 unit SQ Q12HCO [facility] Stop: 03/18/17 11:46 Last Admin: 09/17/16 05:41 Dose: 5,000 unit Dextrose (Dextrose 5%) 1,000 mls @ 100 mls/hr IVC .Q10H PRN PRN Reason: HYPOGLYCEMIA Stop: 03/18/17 11:42 Ceftriaxone Sodium 1,000 mg/ (Dextrose) 100 mls @ 200 mls/hr IVPB Q24H [facility] Stop: 03/18/17 13:01 Last Admin: 09/16/16 13:59 Dose: 200 mls/hr Insulin Detemir (Levemir) 100 unit SQ QPM [facility] Stop: 03/18/17 18:01 Last Admin: 09/16/16 17:54 Dose: 100 unit Insulin Human Lispro (Humalog) 0 units SQ ACHS [facility] PRN Reason: Protocol Stop: 03/18/17 12:37 Last Admin: 09/17/16 08:11 Dose: Not Given Levothyroxine Sodium (Synthroid) 50 mcg PO DAILY@0630 [facility] Stop: 03/19/17 06:31 Last Admin: 09/17/16 05:41 Dose: 50 mcg Losartan Potassium (Cozaar) 50 mg PO DAILY [facility] Stop: 03/18/17 11:46 Last Admin: 09/17/16 08:20 Dose: 50 mg Morphine Sulfate (Morphine Sulfate) 2 mg IVP Q4HR PRN PRN Reason: Moderate Pain Stop: 03/18/17 12:28 Naloxone HCl (Narcan) 0.4 mg IVP Q2MIN PRN PRN Reason: Opioid Reversal Stop: 03/18/17 11:37 Nitroglycerin (Nitroglycerin) 0.4 mg SL Q5MIN PRN PRN Reason: Chest Pain Stop: 03/18/17 11:55 Nystatin (Nystop) 1 appl TP BID [facility] Stop: 03/18/17 21:01 Last Admin: 09/17/16 08:31 Dose: Not Given Ondansetron HCl (Zofran) 4 mg IVP Q8HR PRN PRN Reason: Nausea And Vomiting Stop: 03/18/17 11:37 Polyethylene Glycol (Miralax) 17 gm PO DAILY [facility] Stop: 03/19/17 09:01 Potassium Citrate (Urocit-K) 10 meq PO BID [facility] Stop: 03/18/17 21:01 Last Admin: 09/17/16 08:21 Dose: 10 meq Sertraline HCl (Zoloft) 100 mg PO DAILY [facility] Stop: 03/19/17 09:01 Last Admin: 09/17/16 08:21 Dose: 100 mg Tamsulosin HCl (Flomax) 0.4 mg PO DAILY [facility] PRN Reason: Protocol Stop: 03/19/17 09:01 Last Admin: 09/17/16 08:20 Dose: 0.4 mg - Imaging and Cardiology Echo: report reviewed Cardiac cath: report reviewed Other Results: 12 hour tele: avg HR=64 SR. No significant event noted. - EKG Interpretation EKG results cardiology: personally reviewed Consult Discharge Plan - Plan Referrals: Tony Yuan, BRINELL TESTER [Primary Care Provider] - <Judy Pina - Last Filed: 09/17/16 13:15> Date of Encounter: 09/17/16 Assessment and Plan Discussion w patient/family: The assessment and plan as outlined above was discussed with the patient and/or family members who expressed understanding and agreement. All questions were answered. Thank you for involving us in the care of your patient. Please call with any questions. History of Present Illness History of present illness: Mr. Pate is a 71 year old male All Systems Review: A 10-system review of systems was performed and is negative for pertinent findings except as documented above in the HPI. Physical Examination Vital Signs, Last 4 Hours Temp Pulse Resp BP Pulse Ox 09/17/16 11:43 97.9 F 59 16 120/69 97 Results 09/17/16 04:47 09/17/16 04:47 Lab Results 09/16/16 09/16/16 09/17/16 17:47 23:29 04:47 WBC 14.8 H Hgb 14.6 Hct 42.8 Plt Count 175 Sodium Potassium Chloride Carbon Dioxide BUN Creatinine Glucose Calcium Troponin I 0.06 H* 0.06 H* 09/17/16 09/17/16 04:47 04:47 WBC Hgb Hct Plt Count Sodium 135 L Potassium 4.1 Chloride 103 Carbon Dioxide 25 BUN 22 Creatinine 1.01 Glucose 156 H Calcium 9.1 Troponin I 0.09 H* - Attending Attestation I examined this patient and my medical decision-making was reviewed with the COMMERCIAL FIELD INSPECTOR/PA/Advanced Practice Nurse/Resident Physician. I agree with the documented findings, disposition and treatment plan. Mr. Pate presented with abdominal pain, leukocytosis, UTI and nephrolithiasis. Troponin negative x2 followed by 0.06, 0.06, 0.09 does not appear to represent an acute coronary syndrome in this setting. Patient has reproducible abdominal pain upon palpation. No acute/ischemic ECG findings. TTE demonstrates preserved LVEF. 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 No further testing is warranted. Will sign off. Please call with questions.
--- NOTE | 2016-09-17 13:29 | Electrocardiograph Report ---
[place] [id number] Test Date: 2016-09-16 Pat Name: Roman Pate Department: [id number] Room: 3B Gender: M [employer]: : [id number] Requested By: Melissa Do Order Number: [id number] Reading MD: Jsohua Hinds MD Measurements Intervals [place] Rate: 57 P: 49 IA: 133 QRS: 17 QRSD: 102 T: 47 QT: 482 QTc: 476 Interpretive Statements SINUS BRADYCARDIA PROLONGED QT INTERVAL BASELINE ARTIFACT Electronically Signed On 09-17-2016 13:28:11 EDT by Joshua Hinds MD
[2016-09-17 13:51] LABS: Albumin 3.1 g/dL (3.5-5.0); Albumin/Globulin Ratio 0.9 (1.1-2.2); Bilirubin,Direct 0.8 mg/dL (0.0-0.5); Bilirubin,Indirect 0.6 mg/dL (0.0-1.2); Bilirubin,Total 1.4 mg/dL (0.2-1.2); Globulin 3.3 g/dL (2.4-3.5); Total Protein 6.4 g/dL (6.0-8.3)
[2016-09-17 13:52] LABS: Amylase 47 Units/L (25-125); Lipase 13 Units/L (8-78)
--- NOTE | 2016-09-17 14:49 | Internal Med Progress Note ---
Date of Encounter: 09/17/16 Time of Encounter: 08:20 - Assessment and plan (1) Chest pain Current Visit: Yes Status: Acute Assessment and plan: Per admission note, patient had left-sided chest pain with radiation to left upper extremity was admitted to rule out ACS. We will continue aspirin and statin, patient will be on telemetry. Stress test was canceled after cardiology consult patient was nauseated and was having abdominal pain. Troponin was elevated, flat and adynamic. Last troponin was 0.09 this morning insetting of abdominal pain, leukocytosis, renal calculi, UTI. Most likely demand ischemia. Patient had echocardiogram with LVEF 60% and normal LV chamber size and function , mild concentric LV hypertrophy, mild LV diastolic dysfunction, normal RV structure and function and no significant valvular dysfunction. Patient has denied chest pain to me today. He reports what appears to be more epigastric pain and right upper quadrant pain. He said that he did not ever have chest pain, however a few minutes later he told cardiology that he did have left chest pain 3 days ago. cardiology has signed off and will continue ischemia workup in the outpatient setting in the office with Dr. Lee after patient is less acute. Continue account services associate and treat chest pain Qualifiers: Chest pain type: unspecified Qualified Code(s): R07.9 - Chest pain, unspecified (2) Renal calculi Current Visit: Yes Status: Chronic Assessment and plan: Patient was seen by urology today in regards to left bladder wall thickening and 13 mm left renal calculi. The renal calculi is stable since 2014 and patient is asymptomatic. Due to the bladder wall thickening, urology has considered proceeding with a cystoscopy and bladder biopsy on an elective basis after discharge. Patient is agreeable to this plan. (3) Abdominal pain Current Visit: Yes Status: Acute Assessment and plan: Patient reports abdominal pain today. He says that he has had epigastric pain and right upper quadrant pain for several weeks. He reports decreased appetite due to not feeling well. Posadas sign was positive during exam. An ultrasound and labs were ordered. Labs are essentially negative, ultrasound showed cholelithiasis and biliary sludge, gallbladder thickening without acute cholecystitis. Will consider HIDA scan. He does report having some constipation for the last 3-4 days. Docusate and MiraLAX have been ordered. His abdomen is rounded and distended. He has hyperactive bowel sounds throughout, patient had been nothing by mouth prior to exam this morning in anticipation of stress test that was canceled. Abdomen/Pelvis CT 09/16/16 07:55 IMPRESSION: 1. Asymmetric wall thickening of the left bladder wall and circumferential thickening of the left ureter, similar to the prior exam in 2014. Findings are nonspecific and could be postinflammatory. A urothelial neoplasm should be excluded. 2. Left renal nonobstructing 13 mm calculus. No hydroureteronephrosis. 3. No other acute abnormality in the abdomen or pelvis. D/ / 09/16/2016 09:14:51 Greyson Alas MD / ja Interpreting Provider: Greyson Alas MD Liver Ultrasound 09/17/16 09:30 IMPRESSION: 1. Cholelithiasis, biliary sludge, and gallbladder wall thickening without additional secondary findings of acute cholecystitis. Consider further evaluation with a nuclear medicine hepatobiliary scan if there are clinical findings of cholecystitis. 2. Obscured pancreas. D/ / Bigg Ware MD / Bigg Ware MD Interpreting Provider: Bigg Ware MD Qualifiers: Abdominal location: generalized Qualified Code(s): R10.84 - Generalized abdominal pain (4) Catherine infection of genital region Current Visit: Yes Status: Acute Assessment and plan: Continue fluconazole. (5) CAD (coronary artery disease) Current Visit: Yes Status: Chronic Assessment and plan: Patient reports having 2 coronary artery stents. Continue aspirin and statin. Qualifiers: Coronary Disease-Associated Artery/Lesion type: [place] artery [place] vs. transplanted heart: [place] heart Associated angina: without angina Qualified Code(s): I25.10 - Atherosclerotic heart disease of [place] coronary artery without angina pectoris (6) Hypertension Current Visit: Yes Status: Chronic Assessment and plan: Chronic. Continue medications. Qualifiers: Hypertension type: essential hypertension Qualified Code(s): I10 - Essential (primary) hypertension (7) Type 2 diabetes mellitus Current Visit: Yes Status: Chronic Assessment and plan: A1c is 7.2. Diabetic diet. Sliding scale insulin. Accu-Cheks before meals at bedtime. Qualifiers: Diabetes mellitus complication status: without complication Diabetes mellitus buttermaker helper insulin use: with buttermaker helper use Qualified Code(s): E11.9 - Type 2 diabetes mellitus without complications; Z79.4 - termite renewal inspector (current) use of insulin (8) UTI (urinary tract infection) Current Visit: Yes Status: Acute Assessment and plan: Patient is being treated with Rocephin for UTI. Urine culture is pending. Continue to monitor labs and vital signs and patient condition. Qualifiers: Urinary tract infection type: acute cystitis Hematuria presence: without hematuria Qualified Code(s): N30.00 - Acute cystitis without hematuria (9) DVT prophylaxis Current Visit: Yes Status: Acute Assessment and plan: Subcutaneous heparin daily. - Time Spent With Patient less than 15 minutes - Subjective Interval history: Patient was seen and assessed at 8:20 AM. Primary nurse was in the room during the assessment, as well. Patient is extremely pleasant 71-year-old man who is alert and oriented 3, however appears to be confused at times during assessment. He denies chest pain to me, states that he had what appears to be epigastric pain and right upper quadrant pain. Patient denies any cardiac history initially, then states he said that he had an IA a few weeks ago and was at [facility]. He reports that he does have 2 stents. I asked him if he was transferred to another hospital for his IA due to the fact that I could find no records of it, he states he did not have an IA a few weeks ago and was not at [facility]. He becomes slightly tearful when questioned about his recent confusion and about his . He lives at home with his who apparently has been caring for him primarily at home. Patient reports diffuse abdominal pain, more tender in right upper quadrant. He did have a positive Posadas's sign during the exam. I ordered an ultrasound and labs. Patient also had elevated troponin and was evaluated by cardiology. Per cardiology, troponin elevation most likely due to demand ischemia from leukocytosis, kidney stone, UTI, cardiology will see him on an outpatient basis due to his other acute problems during this admission. Stress test was canceled this morning due to left flank pain and nausea. They recommended continue aspirin and statin. - Constitutional Vitals: Temp Pulse Resp BP Pulse Ox 97.9 F 59 16 120/69 97 09/17/16 11:43 09/17/16 11:43 09/17/16 11:43 09/17/16 11:43 09/17/16 11:43 General appearance: Present: A&O X 3, pleasant, no acute distress, obese. Absent: answers questions appropriately - Head Head exam: Present: normal inspection - ENT ENT exam: Present: mucous membranes moist, normal exam, normal external ear exam - Neck Neck exam general surgery: Present: normal inspection. Absent: lymphadenopathy , tenderness - Respiratory Respiratory exam: Present: decreased breath sounds, CTAB. Absent: rales, respiratory distress, rhonchi, wheezes - Cardiovascular Cardiovascular exam: Present: RRR, +S1, +S2. Absent: clicks, diastolic murmur, gallop, systolic murmur - GI/Abdominal GI/Abdominal exam: Present: distended, firm, hepatomegaly, hyperactive bowel sounds, soft, tenderness. Absent: normal bowel sounds - Neurological Exam Neurological exam: Present: alert, oriented X3. Absent: pronater drift, facial droop, speech deficit - Skin Skin exam: Present: dry, normal color, warm. Absent: rash Internal Medicine: Result - Labs CBC & Chem 7: 09/17/16 04:47 09/17/16 04:47 Labs: Short CBC 09/17/16 Range/Units 04:47 WBC 14.8 H (4.3-11.1) K/mcL Hgb 14.6 (12.9-16.9) g/dL Hct 42.8 (37.5-50.1) % Plt Count 175 (140-400) K/mcL Neutrophils # 11.9 H (1.6-8.9) K/mcL BMP 09/17/16 04:47 Sodium 135 L Potassium 4.1 Chloride 103 Carbon Dioxide 25 BUN 22 Creatinine 1.01 Glucose 156 H Calcium 9.1 Cardiac Enzymes 09/16/16 09/16/16 09/17/16 Range/Units 17:47 23:29 04:47 Troponin I 0.06 H* 0.06 H* 0.09 H* (0-0.03) ng/mL Liver Function 09/17/16 Range/Units 13:26 Total Bilirubin 1.4 H (0.2-1.2) mg/dL Direct Bilirubin 0.8 H (0.0-0.5) mg/dL AST 15 (5-34) Units/L ALT 13 (0-55) Units/L Alkaline Phosphatase 87 (38-126) Units/L Albumin 3.1 L (3.5-5.0) g/dL - ABG Interpretation ABG results: PT/INR, D-dimer PT 12.2 Seconds (9.4-12.1) H 09/16/16 08:05 - Impressions Impressions Liver Ultrasound 09/17/16 09:30 IMPRESSION: 1. Cholelithiasis, biliary sludge, and gallbladder wall thickening without additional secondary findings of acute cholecystitis. Consider further evaluation with a nuclear medicine hepatobiliary scan if there are clinical findings of cholecystitis. 2. Obscured pancreas. D/ / Bigg Ware MD / Bigg Ware MD Interpreting Provider: Bigg Ware MD Consult Discharge Plan - Plan Referrals: Tony Yuan, SILO PAINTER [Primary Care Provider] -
[2016-09-17] MEDS ORDERED: *HR* HYDROmorphone 2 MG/ML SYRINGE IVP ONE (17:26)
[2016-09-17] MEDS ORDERED: Insulin DETEMIR 100 UNIT/ML X5UNITS SQ ONE (21:34)
[2016-09-17] MEDS: Insulin DETEMIR 100 UNIT/ML X5UNITS SQ SCH (21:35)
--- NOTE | 2016-09-18 08:32 | Internal Med Progress Note ---
Date of Encounter: 09/18/16 Time of Encounter: 08:16 - Assessment and plan (1) Acute cholecystitis with chronic cholecystitis Current Visit: Yes Status: Acute (2) Catherine infection of genital region Current Visit: Yes Status: Acute (3) CAD (coronary artery disease) Current Visit: Yes Status: Chronic Qualifiers: Coronary Disease-Associated Artery/Lesion type: [place] artery [place] vs. 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 Qualified Code(s): E11.9 - Type 2 diabetes mellitus without complications; Z79.4 - [facility] (current) use of insulin (6) Renal calculi Current Visit: Yes Status: Chronic (7) UTI (urinary tract infection) Current Visit: Yes Status: Acute Qualifiers: Urinary tract infection type: acute cystitis Hematuria presence: without hematuria Qualified Code(s): N30.00 - Acute cystitis without hematuria (8) Bladder wall thickening Current Visit: Yes Status: Acute (9) Elevated troponin Current Visit: Yes Status: Acute - Subjective Interval history: 09/18 patient care is taken over from hospitalist team today. Mr. Roman Pate is a 71-year-old male who came to hospital with abdominal pain perhaps right upper quadrant. Ultrasound of gallbladder has shown sludge and wall thickening and calculi. HIDA scan is positive. Plan to obtain surgical consultation patient will be nothing by mouth. We will discontinue the Rocephin and a start IV Zosyn instead. He does have leukocytosis without fever. Patient also had questionable chest pain on presentation as cardiology felt that it was more left flank pain further chest pain. In any case his troponin were and only indeterminate range signifying secondary ischemia. Cardiology do not feel to proceed with any intervention at this time. Patient does have a history of established coronary artery disease with a PTCA in the past. At this point I am guessing that cardiology might need to clear him for surgery if that is stage comes. Patient did have an echo during this admission which showed good LV systolic function mild diastolic dysfunction EF 60% without any significant valvular abnormality. Patient did have an echocardiogram during this admission which showed good LV systolic function mild diastolic dysfunction EF of 60% and above and no valvular abnormality. Patient also has type 2 diabetes with a hemoglobin A1c of 7.2 and he will be on Accu-Chek 4 times a day with sliding scale coverage. We will watch his blood pressure patient has a left ureteric and bladder wall thickening which warrants a cystoscopy and biopsy and that will be done as outpatient. He has a left kidney stone which urology plans to remove electively through a retrograde ureteroscopy. Patient was diagnosed with UTI during this admission based on positive UA but cultures are negative. Considering white count will keep him on antibiotic but will broaden the coverage. - Constitutional Vitals: Temp Pulse Resp BP Pulse Ox 98.3 F 72 15 122/55 94 09/18/16 04:03 09/18/16 04:03 09/18/16 04:03 09/18/16 04:03 09/18/16 04:03 General appearance: Present: A&O X 3, pleasant, no acute distress, obese. Absent: answers questions appropriately - Head Head exam: Present: atraumatic, normocephalic - Eye Eye exam: Present: PERRL, conjuntiva pink, sclera anicteric Pupils: Present: PERRL - Neck Neck exam general surgery: Present: supple, trachea midline. Absent: lymphadenopathy - Respiratory Respiratory exam: Present: CTAB. Absent: accessory muscle use, rales, rhonchi, wheezes - Cardiovascular Cardiovascular exam: Present: RRR, +S1, +S2. Absent: diastolic murmur, gallop, rubs, systolic murmur - GI/Abdominal GI/Abdominal exam: Present: normal bowel sounds, soft, no peritoneal signs. Absent: distended, tenderness - Extremities Exam Extremities exam: Present: warm, radial pulses palpable and symetrical. Absent : calf tenderness, cyanotic, pedal edema - Neurological Exam Neurological exam: Present: CN II-XII intact, oriented X3, no focal deficits. Absent: pronater drift, facial droop, speech deficit - Skin Skin exam: Present: dry, intact Internal Medicine: Result - Labs CBC & Chem 7: 09/17/16 04:47 09/17/16 04:47 Labs: Cardiac Enzymes 09/17/16 Range/Units 04:47 Troponin I 0.09 H* (0-0.03) ng/mL Liver Function 09/17/16 Range/Units 13:26 Total Bilirubin 1.4 H (0.2-1.2) mg/dL Direct Bilirubin 0.8 H (0.0-0.5) mg/dL AST 15 (5-34) Units/L ALT 13 (0-55) Units/L Alkaline Phosphatase 87 (38-126) Units/L Albumin 3.1 L (3.5-5.0) g/dL - ABG Interpretation ABG results: PT/INR, D-dimer PT 12.2 Seconds (9.4-12.1) H 09/16/16 08:05 - Impressions Impressions Liver Ultrasound 09/17/16 09:30 IMPRESSION: 1. Cholelithiasis, biliary sludge, and gallbladder wall thickening without additional secondary findings of acute cholecystitis. Consider further evaluation with a nuclear medicine hepatobiliary scan if there are clinical findings of cholecystitis. 2. Obscured pancreas. D/ / Bigg Ware MD / Bigg Ware MD Interpreting Provider: Bigg Ware MD Consult Discharge Plan - Plan Referrals: Tony Yuan, DISABILITY PROGRAM NAVIGATOR [Primary Care Provider] - 09/25/16 3:20 pm
[2016-09-18] MEDS: Insulin LISPRO 300 UNITS/3 ML VIAL SQ SCH ×6 (08:48→23:15)
[2016-09-18] MEDS: *HR* Heparin 5,000 UNIT/ML VIAL SQ SCH ×2 (08:56→17:20)
[2016-09-18] MEDS: Famotidine 20 MG TABLET PO SCH (08:57)
[2016-09-18] MEDS: BuPROPion SR (12 HR) 100 MG TABLET PO SCH ×2 (08:57→22:08)
[2016-09-18] MEDS: Fluconazole 100 MG TABLET PO SCH (08:57)
[2016-09-18] MEDS: Aspirin Enteric Coated 81 MG Tablet PO SCH (08:58)
[2016-09-18] MEDS: Potassium Citrate 10 MEQ TABLET.ER PO SCH ×2 (08:58→22:08)
[2016-09-18] MEDS: Gabapentin 300 MG CAPSULE PO SCH ×3 (08:58→22:08)
[2016-09-18] MEDS: Nystatin POWDER 30 GM BOTTLE TP SCH ×2 (08:59→22:08)
[2016-09-18] MEDS ORDERED: Pantoprazole 40 MG VIAL IVP SCH (09:00)
--- NOTE | 2016-09-18 09:00 | Event Note ---
Date of Encounter: 09/18/16 Time of Encounter: 08:50 - Cardiology Event Note Re-consulted for pre-operative cardiovascular examination and recommendations. Planned procedure: lap bhargavi (possible open) with general anesthesia Dx: acute on chronic cholecystitis. Mr. Pate is an acceptable intermediate cardiovascular risk candidate to proceed with low-intermediate risk surgery. Recommend asa pre-operative if able. Allergy to metoprolol. Follow-up with Dr. Lee in the outpatient setting. The patient was discussed and reviewed with Dr. Pina who agrees with plan as stated above.
[2016-09-18] MEDS: 0.9 % Sodium Chloride 1,000 ML IVC SCH ×3 (09:04→22:19)
[2016-09-18] MEDS: Piperacillin/Tazobactam 3.375 GM in D5% in Water (Mini-Bag+) 100 ML IVPB SCH ×2 (09:05→16:20)
--- NOTE | 2016-09-18 14:23 | General Surgery Consult Note ---
<Emeli Camara - Last Filed: 09/18/16 14:11> Date of Encounter: 09/18/16 Time of Encounter: 13:45 Assessment and Plan (1) Acute cholecystitis Current Visit: Yes Status: Acute I discussed the risks, benefits, alternatives, expected outcomes with the patient has agreed to proceed to the operating room today for a laparoscopic cholecystectomy with possible cholangiogram with Dr. Stephenson Nothing by mouth IV fluids Supportive care and pain control IV antibiotics- Zosyn Incentive spirometer every 1 hour while awake We will continue to follow and assess progress (2) Cholelithiasis Current Visit: Yes Status: Acute I discussed the risks, benefits, alternatives, expected outcomes with the patient has agreed to proceed to the operating room today for a laparoscopic cholecystectomy with possible cholangiogram with Dr. Stephenson Nothing by mouth IV fluids Supportive care and pain control IV antibiotics- Zosyn Incentive spirometer every 1 hour while awake We will continue to follow and assess progress Qualifiers: Cholelithiasis location: gallbladder Cholecystitis presence: with cholecystitis Cholecystitis acuity: acute and chronic Biliary obstruction: without biliary obstruction Qualified Code(s): K80.12 - Calculus of gallbladder with acute and chronic cholecystitis without obstruction (3) Umbilical hernia without obstruction and without gangrene Current Visit: Yes Status: Chronic Plan for a primary repair of umbilical hernia (4) DVT prophylaxis Current Visit: Yes Status: Acute Heparin 5000 units subcutaneous twice daily for DVT prophylaxis Plan for ambulation 3 times a day with assistance after completion of surgery History of Present Illness Consult date: 09/18/16 Requesting physician: Yoli Moss History of present illness: Mr. Pate is a 71 year old male with multiple comorbidities including depression, hypothyroidism, hypertension, type 2 diabetes mellitus, history of myocardial infarction, neuropathy. He presented to the hospital with complaints of abdominal pain radiating into his chest. He did have mildly elevated troponins. He was admitted to the hospitalist service and has been worked up for acute coronary disease. The patient was seen and evaluated by cardiology for hiis elevated troponin and this was felt to be related to demand ischemia. He has no acute EKG changes and his left ventricular ejection fraction is 60%. Further workup has been completed to evaluate his gallbladder as a source for his chest pain. He had an ultrasound completed which shows evidence of gallstones and gallbladder wall thickening. The patient reports diffuse abdominal pain prior to arrival to the hospital. He denies any alleviating factors. He does state that the pain radiated into his back. He states he has had pain similar to this in the past when he had kidney stones. He states the pain was aggravated by activity. He reports multiple episodes of nausea and vomiting which were bilious in nature. Denies any hematemesis or coffee-ground emesis. He denies any fevers or chills. Denies any diarrhea or constipation. Denies any melena or hematochezia. Denies any shortness of breath. He does report radiation of the pain into his chest. Denies any difficulty with urination. However, he states that his urine has been darker than normal. We have been asked to see and evaluate the patient for further recommendations. Past Med Surg Social Fam HX - Past Medical History Source: patient, old records reviewed Medical history: arthritis, coronary artery disease, diabetes, GERD, hypertension, kidney stones, myocardial infarction, thyroid disease ( Hypothyroidism), other (Neuropathy) Psychiatric history: depression - Past Surgical History Surgical History: angioplasty/stent, cataract, herniorrhaphy (umbilical), orthopedic, other (back surgery), other ( Extraction of kidney stones, extraction of teeth) - Social History Smoking Status: Former smoker Smokeless Tobacco Status: No Alcohol use: none Drug use: none - Family History Mother Hx Family Cardiac Disorders: Yes Hx Family Cancer: Yes ("Female") Hx Family Endocrine Disorder: Yes (DM) Father Hx Family Cancer: Yes (Bladder) Medications and Allergies Aspirin Enteric Coated [Aspirin EC] 81 mg PO DAILY 02/08/15 [History] Gabapentin [Neurontin] 300 mg PO TID 02/08/15 [History] Insulin Glargine [Lantus] 100 units SQ QPM 02/08/15 [History] Levothyroxine [Synthroid] 50 mcg PO QAM 02/08/15 [History] Potassium Citrate [Urocit-K] 10 meq PO BID 02/08/15 [History] Tamsulosin [Flomax] 0.4 mg PO DAILY 02/08/15 [History] Atorvastatin Calcium [Lipitor] 80 mg PO HS 09/16/16 [History] BuPROPion SR (12 HR) [Wellbutrin SR] 200 mg PO BID 09/16/16 [History] Fluconazole [Diflucan] 100 mg PO DAILY 09/16/16 [History] Losartan Potassium [Cozaar] 50 mg PO DAILY 09/16/16 [History] Metformin HCl [Metformin HCl ER] 1,000 mg PO BID 09/16/16 [History] Anshu/Poly/HC *EAR* SOLN [Cortisporin *EAR* SOLN] 3 - 4 drop LEFT EAR BID [History] Nystatin POWDER [Nystop] 1 appl TP BID 09/16/16 [History] Sertraline [Zoloft] 100 mg PO DAILY 09/16/16 [History] Allergies aspirin [ASA] Allergy (Verified 11/21/14 12:58) Swelling of Lip/Tongue/Throat metoprolol [From Lopressor] Allergy (Verified 11/21/14 12:58) See Comments No reaction listed per H&P morphine Adverse Reaction (Verified 09/16/16 12:26) See Comments Vomiting Review of Systems All systems PM: reviewed and no additional remarkable complaints except as stated (in the HPI) All systems PM: A 10-system review of systems was performed and is negative for pertinent findings except as documented above in the HPI. General Surgery Exam Initial Vital Signs Temp Pulse Resp BP Pulse Ox 98.0 F 58 18 145/67 100 09/16/16 07:46 09/16/16 07:46 09/16/16 07:46 09/16/16 07:46 09/16/16 07:46 - General physical appearance well developed, well nourished, no distress, moderate pain - Eyes normal ocular movement - ENT normal mucosa, atraumatic, normocephalic - Neck trachea midline - Respiratory normal respiratory effort, clear to auscultation, other (Diminished bibasilar bases) - Cardiovascular Cardiovascular exam: Present: RRR - Abdomen Abdomen general surgery: Present: bowel sounds present, soft, tender Abdominal Tenderness: Present: epigastic, RUQ Hernia: Present: umbilical - Integumentary Integumentary general surgery: Present: warm and dry - Neurologic Present: CN 2-12 grossly intact - Musculoskeletal Present: normal gait, normal posture - Psychiatric Psychiatric general surgery: Present: appropriate, oriented to person, oriented to place, oriented to time, speech is normal, memory intact Exam Initial Vital Signs Temp Pulse Resp BP Pulse Ox 98.0 F 58 18 145/67 100 09/16/16 07:46 09/16/16 07:46 09/16/16 07:46 09/16/16 07:46 09/16/16 07:46 Results - Labs 09/17/16 04:47 09/17/16 04:47 Abnormal lab results WBC 14.8 K/mcL (4.3-11.1) H 09/17/16 04:47 Neutrophils # 11.9 K/mcL (1.6-8.9) H 09/17/16 04:47 Monocytes # 1.4 K/mcL (0.0-1.3) H 09/17/16 04:47 PT 12.2 Seconds (9.4-12.1) H 09/16/16 08:05 Sodium 135 mEq/L (136-145) L 09/17/16 04:47 Glucose 156 mg/dL (70-99) H 09/17/16 04:47 POC Glucose 168 (58-89) H 09/18/16 04:18 Hemoglobin A1c 7.2 % (-5.6) H 09/16/16 08:05 Total Bilirubin 1.4 mg/dL (0.2-1.2) H 09/17/16 13:26 Direct Bilirubin 0.8 mg/dL (0.0-0.5) H 09/17/16 13:26 Troponin I 0.09 ng/mL (0-0.03) H* 09/17/16 04:47 Albumin 3.1 g/dL (3.5-5.0) L 09/17/16 13:26 Albumin/Globulin Ratio 0.9 (1.1-2.2) L 09/17/16 13:26 HDL Cholesterol 36 mg/dL (40-59) L 09/17/16 04:47 Urine Clarity Turbid (Clear) A 09/16/16 08:48 Ur Specific Portis > 1.030 (1.010-1.025) H 09/16/16 08:48 Urine Protein 30 mg/dL (Neg-Trace) H 09/16/16 08:48 Urine Glucose (UA) >=1000 mg/dL (Normal) H 09/16/16 08:48 Urine Ketones 80 mg/dL (Negative) H 09/16/16 08:48 Urine Blood Moderate (Negative) H 09/16/16 08:48 Ur Leukocyte Esterase Large (Negative) H 09/16/16 08:48 Urine Microscopic WBC TNTC per hpf (0-3) H 09/16/16 08:48 Ur Squamous Epith Cells Moderate per lpf (None-Few) H 09/16/16 08:48 Urine Yeast Many per hpf (None Seen) H 09/16/16 08:48 Ur Culture Indicated? YES (NO) A 09/16/16 08:48 All other labs normal. - Imaging US - abdomen: report reviewed Additional studies: Chest X-Ray 09/16/16 07:44 IMPRESSION: No acute cardiopulmonary process. D/ / 09/16/2016 08:37:32 Juarez Garcia MD / ja Interpreting Provider: Juarez Garcia MD Abdomen/Pelvis CT 09/16/16 07:55 IMPRESSION: 1. Asymmetric wall thickening of the left bladder wall and circumferential thickening of the left ureter, similar to the prior exam in 2014. Findings are nonspecific and could be postinflammatory. A urothelial neoplasm should be excluded. 2. Left renal nonobstructing 13 mm calculus. No hydroureteronephrosis. 3. No other acute abnormality in the abdomen or pelvis. D/ / 09/16/2016 09:14:51 Greyson Alas MD / ja Interpreting Provider: Greyson Alas MD Bile Acid Absorption NM 09/17/16 05:55 IMPRESSION: Absent filling of the gallbladder suggesting acute cholecystitis. Chronic cholecystitis or prolonged fasting could also have similar results. D/ / Xander Boo MD / Xander Boo MD Interpreting Provider: Xander Boo MD Liver Ultrasound 09/17/16 09:30 IMPRESSION: 1. Cholelithiasis, biliary sludge, and gallbladder wall thickening without additional secondary findings of acute cholecystitis. Consider further evaluation with a nuclear medicine hepatobiliary scan if there are clinical findings of cholecystitis. 2. Obscured pancreas. D/ / Bigg Ware MD / iBgg Ware MD Interpreting Provider: Bigg Ware MD Consult Discharge Plan - Plan Referrals: Tony Yuan, COLD PRESS OPERATOR [Primary Care Provider] - 09/25/16 3:20 pm - Attending Attestation I examined this patient and my medical decision-making was reviewed with the CAPTAIN WAITER/PA/Advanced Practice Nurse/Resident Physician. I agree with the documented findings, disposition and treatment plan as described except to the extent set forth below. <Keagan Stephenson - Last Filed: 09/18/16 20:27> Date of Encounter: 09/18/16 Review of Systems All systems PM: A 10-system review of systems was performed and is negative for pertinent findings except as documented above in the HPI. General Surgery Exam Initial Vital Signs Temp Pulse Resp BP Pulse Ox 98.0 F 58 18 145/67 100 09/16/16 07:46 09/16/16 07:46 09/16/16 07:46 09/16/16 07:46 09/16/16 07:46 Exam Initial Vital Signs Temp Pulse Resp BP Pulse Ox 98.0 F 58 18 145/67 100 09/16/16 07:46 09/16/16 07:46 09/16/16 07:46 09/16/16 07:46 09/16/16 07:46 Results - Labs 09/17/16 04:47 09/17/16 04:47 Abnormal lab results WBC 14.8 K/mcL (4.3-11.1) H 09/17/16 04:47 Neutrophils # 11.9 K/mcL (1.6-8.9) H 09/17/16 04:47 Monocytes # 1.4 K/mcL (0.0-1.3) H 09/17/16 04:47 PT 12.2 Seconds (9.4-12.1) H 09/16/16 08:05 Sodium 135 mEq/L (136-145) L 09/17/16 04:47 Glucose 156 mg/dL (70-99) H 09/17/16 04:47 POC Glucose 130 (58-89) H 09/18/16 11:42 Hemoglobin A1c 7.2 % (-5.6) H 09/16/16 08:05 Total Bilirubin 1.4 mg/dL (0.2-1.2) H 09/17/16 13:26 Direct Bilirubin 0.8 mg/dL (0.0-0.5) H 09/17/16 13:26 Troponin I 0.09 ng/mL (0-0.03) H* 09/17/16 04:47 Albumin 3.1 g/dL (3.5-5.0) L 09/17/16 13:26 Albumin/Globulin Ratio 0.9 (1.1-2.2) L 09/17/16 13:26 HDL Cholesterol 36 mg/dL (40-59) L 09/17/16 04:47 Urine Clarity Turbid (Clear) A 09/16/16 08:48 Ur Specific Portis > 1.030 (1.010-1.025) H 09/16/16 08:48 Urine Protein 30 mg/dL (Neg-Trace) H 09/16/16 08:48 Urine Glucose (UA) >=1000 mg/dL (Normal) H 09/16/16 08:48 Urine Ketones 80 mg/dL (Negative) H 09/16/16 08:48 Urine Blood Moderate (Negative) H 09/16/16 08:48 Ur Leukocyte Esterase Large (Negative) H 09/16/16 08:48 Urine Microscopic WBC TNTC per hpf (0-3) H 09/16/16 08:48 Ur Squamous Epith Cells Moderate per lpf (None-Few) H 09/16/16 08:48 Urine Yeast Many per hpf (None Seen) H 09/16/16 08:48 Ur Culture Indicated? YES (NO) A 09/16/16 08:48 All other labs normal. - Attending Attestation The patient is seen in evaluated with the clinical nurse practitioner. He has signs and symptoms consistent with acute cholecystitis. I have recommended urgent laparoscopic cholecystectomy, cholangiogram. We will proceed later today. The patient's questions were answered and he wishes to proceed. Keagan Stephenson MD FACS
[2016-09-18] MEDS: Insulin DETEMIR 100 UNIT/ML X5UNITS SQ SCH (17:20)
[2016-09-18] MEDS ORDERED: *HR* Propofol 200 MG/20 ML VIAL IVP ONE (17:30)
[2016-09-18] MEDS ORDERED: *HR* Midazolam HCl 2 MG/2 ML VIAL ONE (17:30)
[2016-09-18] MEDS ORDERED: *HR* FentaNYL (PF) 100 MCG/2 ML VIAL ONE (17:30)
[2016-09-18] MEDS ORDERED: *HR* Rocuronium Bromide 50 MG/5 ML VIAL ONE (17:33)
[2016-09-18] MEDS ORDERED: Lidocaine -MPF 4% 5 ML AMPUL ONE (17:34)
--- NOTE | 2016-09-18 18:08 | Anesthesia Evaluation PreOp ---
Date of Encounter: 09/18/16 Time of Encounter: 18:00 - Past History Planned Operation: Lap Cholecystectomy Cardiac History: [place] (2010), HTN, Hyperlipidemia, Other (CAD s/p PCI 2010) Pulmonary History: Denies Any Significant HX PROFESSOR OF COMMUNICATION History: Denies Any Significant HX Other Medical History: Diabetes Type II, Thyroid, GERD Anesthesia History: No Prior Anesthetic Complications Alcohol Use: none Drug use: none Medications and Allergies Aspirin Enteric Coated [Aspirin EC] 81 mg PO DAILY 02/08/15 [History] Gabapentin [Neurontin] 300 mg PO TID 02/08/15 [History] Insulin Glargine [Lantus] 100 units SQ QPM 02/08/15 [History] Levothyroxine [Synthroid] 50 mcg PO QAM 02/08/15 [History] Potassium Citrate [Urocit-K] 10 meq PO BID 02/08/15 [History] Tamsulosin [Flomax] 0.4 mg PO DAILY 02/08/15 [History] Atorvastatin Calcium [Lipitor] 80 mg PO HS 09/16/16 [History] BuPROPion SR (12 HR) [Wellbutrin SR] 200 mg PO BID 09/16/16 [History] Fluconazole [Diflucan] 100 mg PO DAILY 09/16/16 [History] Losartan Potassium [Cozaar] 50 mg PO DAILY 09/16/16 [History] Metformin HCl [Metformin HCl ER] 1,000 mg PO BID 09/16/16 [History] Anshu/Poly/HC *EAR* SOLN [Cortisporin *EAR* SOLN] 3 - 4 drop LEFT EAR BID [History] Nystatin POWDER [Nystop] 1 appl TP BID 09/16/16 [History] Sertraline [Zoloft] 100 mg PO DAILY 09/16/16 [History] Allergies aspirin [ASA] Allergy (Verified 11/21/14 12:58) Swelling of Lip/Tongue/Throat metoprolol [From Lopressor] Allergy (Verified 11/21/14 12:58) See Comments No reaction listed per H&P morphine Adverse Reaction (Verified 09/16/16 12:26) See Comments Vomiting - Meds/Allergy Pre-op Review Medications Reviewed: Yes Allergies Reviewed: Yes Beta Blockers on Current Med List: No Anesthesia Results - Labs 09/17/16 04:47 09/17/16 04:47 - Imaging EKG: report reviewed (Sinus Cj) Additional studies: LVEF 60% Anesthesia Exam O2 Sat Weight 111.402 kg O2 Sat by Pulse Oximetry 93 O2 Sat by Pulse Oximetry 93 O2 Sat by Pulse Oximetry 96 O2 Sat by Pulse Oximetry 94 O2 Sat by Pulse Oximetry 96 O2 Sat by Pulse Oximetry 93 Vital Signs Temp Pulse Resp BP Pulse Ox 98.0 F 58 18 145/67 100 09/16/16 07:46 09/16/16 07:46 09/16/16 07:46 09/16/16 07:46 09/16/16 07:46 Height: 5'10 Weight: 245 lbs NPO (# of Hours): MN Pain Scale: 0 - HEENT Pupil (Motor): Pupils equal, EOMI Mallampati: III Teeth: Missing, Edentulous (no upper teeth), Poor dentition Oral Opening: Less than or equal to 3 - PROFESSOR OF COMMUNICATION LOC: Oriented PROFESSOR OF COMMUNICATION Motor: Normal RUE, Normal LUE, Normal RLE, Normal LLE, Normal Face PROFESSOR OF COMMUNICATION Sensory: Normal: RUE, LUE, RLE, LLE, Face - Cardiac Rhythm: Regular Murmur: None JVD: No Carotid Bruit: No - Pulmonary Breath Sounds: bilateral Clear Respiratory Effort: Symmetrical Anesthesia Assess/Plan ASA Score: 3 (CAD HTN DM) Modified [place] Scale for Level of Consciousness: Cooperative, oriented, and tranquil Anesthetic Plan: General Monitoring Plan: Standard Monitors Recovery Plan: PACU (Discussed GA, agrees to proceed)
[2016-09-18] MEDS ORDERED: *HR* Succinylcholine 200 MG/10 ML VIAL IVP ONE (18:19)
[2016-09-18] MEDS ORDERED: Lidocaine -MPF 2% 2 ML VIAL ONE (18:21)
[2016-09-18] MEDS ORDERED: CefOXitin 1,000 MG VIAL ONE (18:39)
[2016-09-18] MEDS ORDERED: EPHEDrine 50 MG/ML VIAL ONE (19:08)
[2016-09-18] MEDS ORDERED: *HR* Promethazine 25 MG/ML VIAL IVP PRN (19:28)
[2016-09-18] MEDS ORDERED: Ondansetron 4 MG/2 ML VIAL ONE (19:38)
[2016-09-18] MEDS ORDERED: Dexamethasone 4 MG/ML VIAL ONE (19:38)
[2016-09-18] MEDS ORDERED: Neostigmine Methylsulfate 3 MG/3 ML SYRINGE ONE (19:52)
[2016-09-18] MEDS ORDERED: *HR* HYDROmorphone 2 MG/ML SYRINGE ONE (19:57)
--- NOTE | 2016-09-18 20:18 | Operative Note ---
Date of procedure: 09/18/16 Pre-op diagnosis: Acute cholecystitis Post-op diagnosis: other (Gangrenous cholecystitis) Procedure: Laparoscopic cholecystectomy, cholangiogram, +30% for necrotic gallbladder and acute inflammation. Repair of incarcerated umbilical hernia Anesthesia: RAHUL Surgeon: Keagan Stephenson Estimated blood loss (cc): 50 Specimen: Gallbladder Condition: stable Disposition: PACU Procedure in Detail: After informed consent the patient was taken to major operative suite placed in the supine position and given adequate general anesthetic. The abdomen was prepped and draped in sterile fashion utilizing ChloraPrep standard draping techniques. Timeout was taken patient was identified. I made a vertical midline incision around the incarcerated umbilical hernia. I dissected down the level of fascia. Made a circumferential dissection of the incarcerated omentum. The incarcerated omentum was returned to the abdomen. I sutured the Trocar into the Defect. The Abdomen Was Insufflated to 15 MmHg Pressure CO2. I Placed 11 Trocar in Subxiphoid Area and 2 5 Mm Trochars in the subcostal area. The gallbladder was visualized. The gallbladder was gangrenous and necrotic. The gallbladder was acutely obstructed. I placed a decompressing needle and decompressed the gallbladder with suction. The amount of inflammation and necrosis made the dissection extremely difficult. I was able to grasp and elevate the gallbladder and then dissected out the neck. I encountered the artery first. This was controlled with 2 surgical clips proximally and one distally. The cystic duct was very difficult to dissect however this was done successfully and I obtained an intraoperative cholangiogram as is my usual technique. The cholangiogram was normal. 10 mL of Isovue was used area and the cholangiogram catheter was removed and the cystic duct was secured with 2 surgical clips proximally and one surgical clip distally. It was divided. The gallbladder was then removed from the gallbladder fossa. This was made difficult by the acute inflammation and gangrenous necrosis. The gallbladder was then removed through the #11 port sites. I placed a #10 Rafa-Nur drain into the subcostal area. I irrigated copious clots antibiotic-containing solution. There is no evidence of bleeding or bile leak. The fascia in the subxiphoid area was then closed with interrupted 0 Nurolon. The fascia at the umbilical hernia was then closed in transverse orientation with interrupted 0 Nurolon. The skin overlying the incarcerated umbilical hernia was transparent and several areas were necrotic. I decided to resect the umbilical skin this was done with electrocautery. All wounds were closed with interrupted 2-0 Vicryl in subcutaneous layer and skin axel. He tolerated the procedure well. +30% of charge for difficulty of dissection, gangrenous necrosis. And increased time of dissection.
[2016-09-18] MEDS: *HR* HYDROmorphone (PF) 1 MG/ML SYRINGE IVP PRN ×4 (20:36→21:03)
[2016-09-18] MEDS ORDERED: Ringers Solution, Lactated 1,000 ML IVC SCH (20:45)
--- NOTE | 2016-09-18 21:14 | Anesthesia Evaluation Post Op ---
Date of Encounter: 09/18/16 Time of Encounter: 21:11 - Vital Signs Vital Signs: Vital Signs/O2 Sat/Glucose, Most Current Temp Pulse Resp BP Pulse Ox 09/18/16 21:00 77 16 176/85 95 09/18/16 20:50 99 F 75 16 181/80 96 09/18/16 20:40 90 18 182/98 94 09/18/16 20:30 75 18 166/79 96 09/18/16 20:20 98.3 F 84 24 172/91 94 - Lungs Lungs: Clear Ascult./Percussion - Airway Airway: Non-obstructed - Cardiovascular Regular Rate, Baseline Rhythm - Mental Status Mental Status: Alert & Oriented, Answers Appropriately - Pain Pain Scale: 4 Pain Scale used: Numeric (1 - 10) - Nausea Vomiting Nausea Vomiting: Not Present - Hydration Hydration: Ice chips, Has not voided Notes: 09/18/16 21:12 pt receiving additional hydralazine for inreased blood pressure. - Discharge PostOp Status: Transfer Patient to floor
[2016-09-18] MEDS ORDERED: Insulin DETEMIR 100 UNIT/ML X5UNITS SQ ONE (21:34)
[2016-09-18] MEDS ORDERED: *HR* Dextrose 50 % in Water (Syg) 50 ML SYRINGE IVP PRN (21:37)
[2016-09-18] MEDS ORDERED: Naloxone 0.4 MG/ML INJ IVP PRN (21:37)
[2016-09-18] MEDS ORDERED: Acetaminophen 325 MG TABLET PO PRN (21:37)
[2016-09-18] MEDS ORDERED: Nitroglycerin 0.4 MG TAB.SUBL SL PRN (21:37)
[2016-09-18] MEDS ORDERED: D5% in Water 1,000 ML IVC PRN (21:37)
[2016-09-18] MEDS ORDERED: Dextrose Gel 15 GM PO PRN ×2 (21:37)
[2016-09-18] MEDS ORDERED: Ondansetron 4 MG/2 ML VIAL IVP PRN (21:37)
[2016-09-19] MEDS: Piperacillin/Tazobactam 3.375 GM in D5% in Water (Mini-Bag+) 100 ML IVPB SCH ×3 (01:39→17:28)
[2016-09-19 05:03] LABS: Basophils % 0.1 %; Hemoglobin 13.5 g/dL (12.9-16.9); Immature Granulocytes % 0.8 % (0-4); Lymphocytes # 0.5 K/mcL (0.6-4.6); Lymphocytes % 3.1 %; Mean Corpuscular HGB Conc 33.8 g/dL (31.6-35.5); Mean Corpuscular Hemoglobin 30.5 pg (28.0-33.3); Mean Corpuscular Volume 90.3 fL (83.0-100.0); Mean Platelet Volume 9.5 fL (9.4-12.4); Monocytes # 0.6 K/mcL (0.0-1.3); Monocytes % 3.9 %; Neutrophils # 13.8 K/mcL (1.6-8.9); Platelet Count 144 K/mcL (140-400); Red Blood Count 4.43 M/mcL (4.19-5.50); Red Cell Distribution Width 13.9 % (11.5-14.5); Segmented Neutrophils % 92.1 %
[2016-09-19 05:18] LABS: Alanine Aminotransferase 28 Units/L (0-55); Albumin 2.6 g/dL (3.5-5.0); Albumin/Globulin Ratio 0.7 (1.1-2.2); Alkaline Phosphatase 107 Units/L (38-126); Aspartate Amino Transferase 36 Units/L (5-34); BUN/Creatinine Ratio 17 (6-26); Bilirubin,Total 1.1 mg/dL (0.2-1.2); Blood Urea Nitrogen 18 mg/dL (8-26); Calcium 8.8 mg/dL (8.6-10.8); Carbon Dioxide 24 mEq/L (19-29); Chloride 103 mEq/L (98-109); Globulin 3.8 g/dL (2.4-3.5); Glucose 252 mg/dL (70-99); Osmolality,Calculated 288 (280-300); Potassium 4.4 mEq/L (3.5-4.5); Sodium 134 mEq/L (136-145); Total Protein 6.4 g/dL (6.0-8.3); eGFR For African Americans > 60 (> 60); eGFR For Non-African Americans > 60 (> 60)
[2016-09-19] MEDS: *HR* Heparin 5,000 UNIT/ML VIAL SQ SCH ×2 (06:11→17:29)
[2016-09-19] MEDS: *HR* HYDROmorphone (PF) 1 MG/ML SYRINGE IVP PRN ×2 (06:25→11:01)
[2016-09-19] MEDS ORDERED: Insulin LISPRO 300 UNITS/3 ML VIAL SQ SCH (08:00)
[2016-09-19] MEDS: Insulin LISPRO 300 UNITS/3 ML VIAL SQ SCH ×4 (08:07→20:29)
[2016-09-19] MEDS: 0.9 % Sodium Chloride 1,000 ML IVC SCH (08:11)
[2016-09-19] MEDS ORDERED: Fluconazole 100 MG TABLET PO SCH (09:00)
[2016-09-19] MEDS ORDERED: Aspirin Enteric Coated 81 MG Tablet PO SCH (09:00)
--- NOTE | 2016-09-19 09:13 | Internal Med Progress Note ---
Date of Encounter: 09/19/16 Time of Encounter: 09:11 - Assessment and plan (1) Acute cholecystitis with chronic cholecystitis Current Visit: Yes Status: Acute Assessment and plan: +30% for necrotic gallbladder and acute inflammation Underwent laparoscopic cholecystectomy on 09/18/2016 Received Rocephin for 2 days and was switched to Zosyn day 3 Surgery recommendations appreciated for discharge planning Consider removing drain when possible Currently on clear liquids (2) Cholelithiasis Current Visit: Yes Status: Acute Qualifiers: Cholelithiasis location: gallbladder Cholecystitis presence: with cholecystitis Cholecystitis acuity: acute and chronic Biliary obstruction: without biliary obstruction Qualified Code(s): K80.12 - Calculus of gallbladder with acute and chronic cholecystitis without obstruction (3) Catherine infection of genital region Current Visit: Yes Status: Acute Assessment and plan: Continue fluconazole. (4) CAD (coronary artery disease) Current Visit: Yes Status: Chronic Assessment and plan: Patient reports having 2 coronary artery stents. Continue aspirin and statin. Qualifiers: Coronary Disease-Associated Artery/Lesion type: [place] artery [place] vs. transplanted heart: [place] heart Associated angina: without angina Qualified Code(s): I25.10 - Atherosclerotic heart disease of [place] coronary artery without angina pectoris (5) Hypertension Current Visit: Yes Status: Chronic Assessment and plan: Chronic. Stable IV hydralazine as needed Qualifiers: Hypertension type: essential hypertension Qualified Code(s): I10 - Essential (primary) hypertension (6) Type 2 diabetes mellitus Current Visit: Yes Status: Chronic Assessment and plan: A1c is 7.2. Diabetic diet. Sliding scale insulin. Accu-Cheks before meals at bedtime. Qualifiers: Diabetes mellitus complication status: without complication Diabetes mellitus sample paster insulin use: with sample paster use Qualified Code(s): E11.9 - Type 2 diabetes mellitus without complications; Z79.4 - longterm (current) use of insulin (7) Renal calculi Current Visit: Yes Status: Chronic Assessment and plan: Patient was seen by urology in regards to left bladder wall thickening and 13 mm left renal calculi. The renal calculi is stable since 2014 and patient is asymptomatic. Due to the bladder wall thickening, urology has considered proceeding with a cystoscopy and bladder biopsy on an elective basis after discharge. . (8) UTI (urinary tract infection) Current Visit: Yes Status: Acute Assessment and plan: Was started on Rocephin for UTI. Received 2 days of Rocephin and then was switched to Zosyn for acute cholecystitis Urine culture showed grossly mixed brigida. Qualifiers: Urinary tract infection type: acute cystitis Hematuria presence: without hematuria Qualified Code(s): N30.00 - Acute cystitis without hematuria (9) Bladder wall thickening Current Visit: Yes Status: Acute (10) Elevated troponin Current Visit: Yes Status: Acute Assessment and plan: Likely secondary to demand ischemia. Evaluated by cardiology (11) Umbilical hernia without obstruction and without gangrene Current Visit: Yes Status: Chronic - Subjective Interval history: Complains of mild abdominal pain after the surgical procedure, drain is showing serosanguineous fluid 100 mL since yesterday, denies any chest pain, no shortness of breath, no dysuria or diarrhea, no nausea or vomiting - Constitutional Vitals: Temp Pulse Resp BP Pulse Ox 98.4 F 86 16 145/69 94 09/19/16 07:16 09/19/16 07:16 09/19/16 07:16 09/19/16 07:16 09/19/16 07:16 General appearance: Present: A&O X 3, pleasant, no acute distress, obese. Absent: answers questions appropriately - Head Head exam: Present: atraumatic, normocephalic - Eye Eye exam: Present: PERRL, conjuntiva pink, sclera anicteric Pupils: Present: PERRL - Neck Neck exam general surgery: Present: supple, trachea midline. Absent: lymphadenopathy - Respiratory Respiratory exam: Present: decreased breath sounds, CTAB. Absent: accessory muscle use, rales, rhonchi, wheezes - Cardiovascular Cardiovascular exam: Present: RRR, +S1, +S2. Absent: diastolic murmur, gallop, rubs, systolic murmur - GI/Abdominal GI/Abdominal exam: Present: distended (Right upper quadrant drain, surgical port wounds without signs of infection), normal bowel sounds, soft, no peritoneal signs. Absent: tenderness - Extremities Exam Extremities exam: Present: warm, radial pulses palpable and symetrical. Absent : calf tenderness, cyanotic, pedal edema - Neurological Exam Neurological exam: Present: CN II-XII intact, oriented X3, no focal deficits. Absent: pronater drift, facial droop, speech deficit - Skin Skin exam: Present: dry, intact Internal Medicine: Result - Labs CBC & Chem 7: 09/19/16 04:51 09/19/16 04:51 Labs: Short CBC 09/19/16 Range/Units 04:51 WBC 15.0 H (4.3-11.1) K/mcL Hgb 13.5 (12.9-16.9) g/dL Hct 40.0 (37.5-50.1) % Plt Count 144 (140-400) K/mcL Neutrophils # 13.8 H (1.6-8.9) K/mcL BMP 09/19/16 04:51 Sodium 134 L Potassium 4.4 Chloride 103 Carbon Dioxide 24 BUN 18 Creatinine 1.09 Glucose 252 H Calcium 8.8 Liver Function 09/19/16 Range/Units 04:51 Total Bilirubin 1.1 (0.2-1.2) mg/dL AST 36 H (5-34) Units/L ALT 28 (0-55) Units/L Alkaline Phosphatase 107 (38-126) Units/L Albumin 2.6 L (3.5-5.0) g/dL - ABG Interpretation ABG results: PT/INR, D-dimer PT 12.2 Seconds (9.4-12.1) H 09/16/16 08:05 - Impressions Impressions Cholangiogram,Operative 09/18/16 00:00 IMPRESSION: Intraprocedural images as above. No findings to suggest common bile duct stone. Please see operative note for detail. D/ / 09/18/2016 19:58:13 Dayron Cohen MD / Viviana Lee Interpreting Provider: Dayron Cohen MD - VTE Documentation of Mechanical Device: Intermittent pneumatic compression device Consult Discharge Plan - Plan Referrals: Tony Yuan, STOCK GRADER [Primary Care Provider] - 09/25/16 3:20 pm
[2016-09-19] MEDS: BuPROPion SR (12 HR) 100 MG TABLET PO SCH ×2 (10:58→20:31)
[2016-09-19] MEDS: Potassium Citrate 10 MEQ TABLET.ER PO SCH ×2 (10:59→20:31)
[2016-09-19] MEDS: Gabapentin 300 MG CAPSULE PO SCH ×3 (10:59→20:31)
[2016-09-19] MEDS: Pantoprazole 40 MG VIAL IVP SCH (11:00)
[2016-09-19] MEDS: Nystatin POWDER 30 GM BOTTLE TP SCH ×2 (11:03→20:41)
[2016-09-19] MEDS ORDERED: *HR* HYDROmorphone (PF) 1 MG/ML SYRINGE IVP PRN ×2 (11:22→16:24)
--- NOTE | 2016-09-19 16:06 | General Surgery Progress Note ---
<JaxEmeli Terrell - Last Filed: 09/19/16 16:04> Date of Encounter: 09/19/16 Time of Encounter: 16:00 - Assessment and Plan (1) Acute cholecystitis Current Visit: Yes Status: Acute POD #1 Laparoscopic Cholecystectomy and primary repair of umbilical hernia with Dr. Stephenson Advance to a soft diet IV fluids- decrease to 50ml/hour Supportive care and pain control IV antibiotics- Zosyn for today and tomorrow secondary to gangrenous cholecystitis Incentive spirometer every 1 hour while awake Ambulate hallways with assistance Daily wound care We will continue to follow and assess progress (2) Cholelithiasis Current Visit: Yes Status: Acute POD #1 Laparoscopic Cholecystectomy and primary repair of umbilical hernia with Dr. Stephenson Advance to a soft diet IV fluids- decrease to 50ml/hour Supportive care and pain control IV antibiotics- Zosyn for today and tomorrow secondary to gangrenous cholecystitis Incentive spirometer every 1 hour while awake Ambulate hallways with assistance Daily wound care We will continue to follow and assess progress Qualifiers: Cholelithiasis location: gallbladder Cholecystitis presence: with cholecystitis Cholecystitis acuity: acute and chronic Biliary obstruction: without biliary obstruction Qualified Code(s): K80.12 - Calculus of gallbladder with acute and chronic cholecystitis without obstruction (3) Umbilical hernia without obstruction and without gangrene Current Visit: Yes Status: Chronic POD #1 primary repair of umbilical hernia (4) DVT prophylaxis Current Visit: Yes Status: Acute Heparin 5000 units subcutaneous twice daily for DVT prophylaxis Plan for ambulation 3 times a day with assistance after completion of surgery Subjective Patient reports: feels better, pain is less, tolerating liquids well, voiding w/ o difficulty, flatus, no bowel movement, afebrile Objective Vital Signs - Last 8 Hours Temp Pulse Resp BP Pulse Ox 09/19/16 14:07 98.2 F 64 15 127/62 93 09/19/16 10:45 97.6 F 71 16 153/82 93 Intake and Output 09/19/16 09/19/16 09/19/16 07:59 15:59 23:59 Intake Total 100 / 100 1100 / 1100 Output Total 235 / 235 20 / 20 Balance -135 / -135 1080 / 1080 Intake: IV Fluids 100 / 100 1100 / 1100 0.9 % Sodium Chloride 1, 1000 / 1000 000 ML @ 100 mls/hr IVC . Q10H [facility] Rx#:[id number] Zosyn 3.375 GM In 100 / 100 100 / 100 Dextrose 5% (Minibag+) 100 ML 100 ML @ 25 mls/hr IVPB Q8H [facility] Rx#: [id number] Oral 0 / 0 Output: Urine 200 / 200 Wound Drainage 35 / 35 20 / 20 Right Lower Abdomen 35 / 35 20 / 20 Other: Weight 114.2 kg Blood Glucose* 221 271 Patient Weight 09/19/16 23:59 Weight 114.2 kg - General physical appearance well developed, well nourished, no distress - Eyes normal ocular movement - ENT normal mucosa, atraumatic, normocephalic - Neck Neck exam: trachea midline - Respiratory normal respiratory effort, clear to auscultation - Cardiovascular Cardiovascular exam: Present: RRR - Abdomen Abdomen: Present: bowel sounds present, soft, tender (minimal post-operative tenderness), wound (VIKRAM drain to bulb suction with serousang. drainage noted ( 55ml since midnight)) - Neurologic CN 2-12 grossly intact - Psychiatric oriented to time, oriented to person, oriented to place, speech is normal, memory intact - Labs 09/19/16 04:51 09/19/16 04:51 Diabetes panel 09/19/16 Range/Units 04:51 Sodium 134 L (136-145) mEq/L Potassium 4.4 (3.5-4.5) mEq/L Chloride 103 (98-109) mEq/L Carbon Dioxide 24 (19-29) mEq/L BUN 18 (8-26) mg/dL Creatinine 1.09 (0.72-1.25) mg/dL Glucose 252 H (70-99) mg/dL Calcium 8.8 (8.6-10.8) mg/dL AST 36 H (5-34) Units/L ALT 28 (0-55) Units/L Alkaline Phosphatase 107 (38-126) Units/L Albumin 2.6 L (3.5-5.0) g/dL Calcium panel 09/19/16 Range/Units 04:51 Calcium 8.8 (8.6-10.8) mg/dL Albumin 2.6 L (3.5-5.0) g/dL Pituitary panel 09/19/16 Range/Units 04:51 Sodium 134 L (136-145) mEq/L Potassium 4.4 (3.5-4.5) mEq/L Chloride 103 (98-109) mEq/L Carbon Dioxide 24 (19-29) mEq/L BUN 18 (8-26) mg/dL Creatinine 1.09 (0.72-1.25) mg/dL Glucose 252 H (70-99) mg/dL Calcium 8.8 (8.6-10.8) mg/dL Adrenal panel 09/19/16 Range/Units 04:51 Sodium 134 L (136-145) mEq/L Potassium 4.4 (3.5-4.5) mEq/L Chloride 103 (98-109) mEq/L Carbon Dioxide 24 (19-29) mEq/L BUN 18 (8-26) mg/dL Creatinine 1.09 (0.72-1.25) mg/dL Glucose 252 H (70-99) mg/dL Calcium 8.8 (8.6-10.8) mg/dL Total Bilirubin 1.1 (0.2-1.2) mg/dL AST 36 H (5-34) Units/L ALT 28 (0-55) Units/L Alkaline Phosphatase 107 (38-126) Units/L Albumin 2.6 L (3.5-5.0) g/dL - VTE Documentation of Mechanical Device: Intermittent pneumatic compression device Consult Discharge Plan - Plan Additional Instructions: #1 may shower, no tub bath for 2 weeks #2 wash incisions with soap and water and pat dry daily #3 no lifting, pushing, pulling more than 15 pounds for the next 6 weeks #4 no driving until off narcotics for 24 hours and able to safely react in the car #5 may climb stairs Referrals: Tony Yuan CNP [Primary Care Provider] - 09/25/16 3:20 pm Emeli Camara CNP [Advanced Practice Nurse] - 09/25/16 9:30 am - Attending Attestation I examined this patient and my medical decision-making was reviewed with the MARBLE HELPER/PA/Advanced Practice Nurse/Resident Physician. I agree with the documented findings, disposition and treatment plan as described except to the extent set forth below. <Keagan Stephenson - Last Filed: 09/19/16 21:02> Date of Encounter: 09/19/16 Objective Vital Signs - Last 8 Hours Temp Pulse Resp BP Pulse Ox 09/19/16 20:02 97.9 F 55 18 113/72 97 Intake and Output 09/19/16 09/19/16 09/19/16 07:59 15:59 23:59 Intake Total 1000 / 1000 Output Total Balance 975 / 955 Intake: IV Fluids 1000 / 1000 0.9 % Sodium Chloride 1, 1000 / 1000 000 ML @ 100 mls/hr IVC . Q10H [facility] Rx#:[id number] Output: Wound Drainage Right Lower Abdomen Other: # Voids 4 Blood Glucose* 249 - Labs 09/19/16 04:51 09/19/16 04:51 - Attending Attestation The patient is seen and evaluated on morning rounds. He has had tremendous improvement in his pain since laparoscopic cholecystectomy for gangrenous cholecystitis. We will advance his diet later today. Continue IV antibiotics Keagan Stephenson MD FACS
[2016-09-19] MEDS ORDERED: Acetaminophen 325 MG TABLET PO PRN (16:21)
[2016-09-19] MEDS ORDERED: *HR* OxyCODONE/APAP 5/325 TABLET PO PRN (16:21)
[2016-09-19] MEDS ORDERED: 0.9 % Sodium Chloride 1,000 ML IVC SCH (16:23)
[2016-09-19] MEDS ORDERED: Insulin DETEMIR 100 UNIT/ML X5UNITS SQ SCH (18:00)
[2016-09-20] MEDS: Piperacillin/Tazobactam 3.375 GM in D5% in Water (Mini-Bag+) 100 ML IVPB SCH ×3 (00:59→18:01)
[2016-09-20 05:41] LABS: Basophils % 0.1 %; Eosinophils % 0.2 %; Hematocrit 38.1 % (37.5-50.1); Hemoglobin 12.8 g/dL (12.9-16.9); Immature Granulocytes % 0.3 % (0-4); Lymphocytes % 10.7 %; Mean Corpuscular HGB Conc 33.6 g/dL (31.6-35.5); Mean Corpuscular Hemoglobin 30.3 pg (28.0-33.3); Mean Corpuscular Volume 90.1 fL (83.0-100.0); Mean Platelet Volume 9.8 fL (9.4-12.4); Monocytes # 0.6 K/mcL (0.0-1.3); Monocytes % 6.6 %; Neutrophils # 7.9 K/mcL (1.6-8.9); Platelet Count 186 K/mcL (140-400); Red Blood Count 4.23 M/mcL (4.19-5.50); Red Cell Distribution Width 13.9 % (11.5-14.5); Segmented Neutrophils % 82.1 %
[2016-09-20] MEDS: *HR* Heparin 5,000 UNIT/ML VIAL SQ SCH ×2 (05:52→18:12)
[2016-09-20 05:58] LABS: Alanine Aminotransferase 48 Units/L (0-55); Albumin 2.4 g/dL (3.5-5.0); Albumin/Globulin Ratio 0.6 (1.1-2.2); Alkaline Phosphatase 93 Units/L (38-126); Aspartate Amino Transferase 66 Units/L (5-34); BUN/Creatinine Ratio 22 (6-26); Bilirubin,Total 0.5 mg/dL (0.2-1.2); Blood Urea Nitrogen 19 mg/dL (8-26); Calcium 8.5 mg/dL (8.6-10.8); Carbon Dioxide 24 mEq/L (19-29); Chloride 109 mEq/L (98-109); Globulin 3.7 g/dL (2.4-3.5); Osmolality,Calculated 287 (280-300); Potassium 3.7 mEq/L (3.5-4.5); Sodium 139 mEq/L (136-145); Total Protein 6.1 g/dL (6.0-8.3); eGFR For African Americans > 60 (> 60); eGFR For Non-African Americans > 60 (> 60)
[2016-09-20 06:12] LABS: Glucose 32 mg/dL (70-99)
[2016-09-20] MEDS: Insulin LISPRO 300 UNITS/3 ML VIAL SQ SCH ×4 (07:48→21:46)
[2016-09-20] MEDS: Pantoprazole 40 MG VIAL IVP SCH (08:44)
[2016-09-20] MEDS: Gabapentin 300 MG CAPSULE PO SCH ×3 (08:45→21:46)
[2016-09-20] MEDS: BuPROPion SR (12 HR) 100 MG TABLET PO SCH ×2 (08:45→21:46)
[2016-09-20] MEDS: Nystatin POWDER 30 GM BOTTLE TP SCH ×2 (08:46→21:47)
[2016-09-20] MEDS: Potassium Citrate 10 MEQ TABLET.ER PO SCH ×2 (08:46→21:49)
[2016-09-20] MEDS ORDERED: Fluconazole 100 MG TABLET PO SCH (09:00)
[2016-09-20] MEDS ORDERED: Insulin DETEMIR 100 UNIT/ML X5UNITS SQ SCH (09:43)
--- NOTE | 2016-09-20 09:46 | Internal Med Progress Note ---
Date of Encounter: 09/20/16 Time of Encounter: 09:44 - Assessment and plan (1) Acute cholecystitis with chronic cholecystitis Current Visit: Yes Status: Acute Assessment and plan: +30% for necrotic gallbladder and acute inflammation Underwent laparoscopic cholecystectomy on 09/18/2016 Received Rocephin for 2 days and was switched to Zosyn day 4 Surgery recommending another day with IV antibiotics, will discharge in the morning if stable The patient will be discharged with the drain which will be removed at a later time Advanced diet (2) Cholelithiasis Current Visit: Yes Status: Acute Qualifiers: Cholelithiasis location: gallbladder Cholecystitis presence: with cholecystitis Cholecystitis acuity: acute and chronic Biliary obstruction: without biliary obstruction Qualified Code(s): K80.12 - Calculus of gallbladder with acute and chronic cholecystitis without obstruction (3) Catherine infection of genital region Current Visit: Yes Status: Acute Assessment and plan: Continue fluconazole. (4) CAD (coronary artery disease) Current Visit: Yes Status: Chronic Assessment and plan: Patient reports having 2 coronary artery stents. Hold aspirin as the drain was showing bloody fluid Qualifiers: Coronary Disease-Associated Artery/Lesion type: [place] artery [place] vs. transplanted heart: [place] heart Associated angina: without angina Qualified Code(s): I25.10 - Atherosclerotic heart disease of [place] coronary artery without angina pectoris (5) Hypertension Current Visit: Yes Status: Chronic Assessment and plan: Chronic. Stable IV hydralazine as needed Qualifiers: Hypertension type: essential hypertension Qualified Code(s): I10 - Essential (primary) hypertension (6) Type 2 diabetes mellitus Current Visit: Yes Status: Chronic Assessment and plan: A1c is 7.2. Diabetic diet. Sliding scale insulin. Accu-Cheks before meals at bedtime. The patient was on Levemir 100 units at night, patient developed an episode of hypoglycemia early today for which his Levemir will be decreased down to 50 units at night only for now Qualifiers: Diabetes mellitus complication status: without complication Diabetes mellitus jail insulin use: with exterminator use Qualified Code(s): E11.9 - Type 2 diabetes mellitus without complications; Z79.4 - long term care pharmacist (current) use of insulin (7) Renal calculi Current Visit: Yes Status: Chronic Assessment and plan: Patient was seen by urology in regards to left bladder wall thickening and 13 mm left renal calculi. The renal calculi is stable since 2014 and patient is asymptomatic. Due to the bladder wall thickening, urology has considered proceeding with a cystoscopy and bladder biopsy on an elective basis after discharge. . (8) UTI (urinary tract infection) Current Visit: Yes Status: Acute Assessment and plan: Was started on Rocephin for UTI. Received 2 days of Rocephin and then was switched to Zosyn for acute cholecystitis Urine culture showed grossly mixed brigida. Qualifiers: Urinary tract infection type: acute cystitis Hematuria presence: without hematuria Qualified Code(s): N30.00 - Acute cystitis without hematuria (9) Bladder wall thickening Current Visit: Yes Status: Acute (10) Elevated troponin Current Visit: Yes Status: Acute Assessment and plan: Likely secondary to demand ischemia. Evaluated by cardiology (11) Umbilical hernia without obstruction and without gangrene Current Visit: Yes Status: Chronic - Subjective Interval history: Feeling better today Complains of mild abdominal pain after the surgical procedure, drain is showing serosanguineous fluid , denies any chest pain, no shortness of breath, no dysuria or diarrhea, no nausea or vomiting - Constitutional Vitals: Temp Pulse Resp BP Pulse Ox 97.7 F 51 16 110/66 92 09/20/16 06:32 09/20/16 06:32 09/20/16 06:32 09/20/16 06:32 09/20/16 06:32 General appearance: Present: A&O X 3, pleasant, no acute distress, obese. Absent: answers questions appropriately Exam: General appearance: Present: A&O X 3, pleasant, no acute distress, obese. Absent: answers questions appropriately - Head Head exam: Present: atraumatic, normocephalic - Eye Eye exam: Present: PERRL, conjuntiva pink, sclera anicteric Pupils: Present: PERRL - Neck Neck exam general surgery: Present: supple, trachea midline. Absent: lymphadenopathy - Respiratory Respiratory exam: Present: decreased breath sounds, CTAB. Absent: accessory muscle use, rales, rhonchi, wheezes - Cardiovascular Cardiovascular exam: Present: RRR, +S1, +S2. Absent: diastolic murmur, gallop, rubs, systolic murmur - GI/Abdominal GI/Abdominal exam: Present: distended (Right upper quadrant drain, surgical port wounds without signs of infection), normal bowel sounds, soft, no peritoneal signs. Absent: tenderness - Extremities Exam Extremities exam: Present: warm, radial pulses palpable and symetrical. Absent : calf tenderness, cyanotic, pedal edema - Neurological Exam Neurological exam: Present: CN II-XII intact, oriented X3, no focal deficits. Absent: pronater drift, facial droop, speech deficit - Skin Skin exam: Present: dry, intact Internal Medicine: Result - Labs CBC & Chem 7: 09/20/16 04:33 09/20/16 04:33 Labs: Short CBC 09/20/16 Range/Units 04:33 WBC 9.7 (4.3-11.1) K/mcL Hgb 12.8 L (12.9-16.9) g/dL Hct 38.1 (37.5-50.1) % Plt Count 186 (140-400) K/mcL Neutrophils # 7.9 (1.6-8.9) K/mcL BMP 09/20/16 04:33 Sodium 139 Potassium 3.7 Chloride 109 Carbon Dioxide 24 BUN 19 Creatinine 0.87 Glucose 32 L* Calcium 8.5 L Liver Function 09/20/16 Range/Units 04:33 Total Bilirubin 0.5 (0.2-1.2) mg/dL AST 66 H (5-34) Units/L ALT 48 (0-55) Units/L Alkaline Phosphatase 93 (38-126) Units/L Albumin 2.4 L (3.5-5.0) g/dL - ABG Interpretation ABG results: PT/INR, D-dimer PT 12.2 Seconds (9.4-12.1) H 09/16/16 08:05 - VTE Documentation of Mechanical Device: Intermittent pneumatic compression device Consult Discharge Plan - Plan Additional Instructions: #1 may shower, no tub bath for 2 weeks #2 wash incisions with soap and water and pat dry daily #3 no lifting, pushing, pulling more than 15 pounds for the next 6 weeks #4 no driving until off narcotics for 24 hours and able to safely react in the car #5 may climb stairs Referrals: Emeli Camara CNP [Advanced Practice Nurse] - 09/25/16 9:30 am Tony Yuan CNP [Primary Care Provider] - 09/25/16 3:20 pm
--- NOTE | 2016-09-20 09:50 | General Surgery Progress Note ---
<Raoul Moore - Last Filed: 09/20/16 13:13> Date of Encounter: 09/20/16 Time of Encounter: 09:48 - Assessment and Plan (1) Acute cholecystitis Current Visit: Yes Status: Acute POD # 2 Laprascopic Choleocystectomy and primary repair of umbilical hernia. Tolerating soft diet well. Advance to regular if BM noted. Hgb stable 12.8. Afebrile. VIKRAM drain produced 30cc since midnight. Consider d/c tomorrow if fluid trends down. Continue Zosyn and Diflucan d/t gangrenous gallbladder Pain is well controlled at this time Discussed and encouraged the use of his ICS and OOB as tolerated Daily wound care to IVKRAM site and midline incision MI Dulcolax ordered with BS present. Will monitor for bowel function (2) Umbilical hernia without obstruction and without gangrene Current Visit: Yes Status: Chronic POD # 2 Laprascopic Choleocystectomy and primary repair of umbilical hernia. Continue wound care Incision healing well. C/d/i. No dehiscence, erythema or drainage. Subjective Narrative: Patient is laying comfortably in bed this morning. Afebrile. No concerns overnight. Tolerating soft diet well without emesis. He states the pain is significantly better today. Using his ICS and getting up to the restroom. Good urine output but no BM or flatus noted. Objective Vital Signs - Last 8 Hours Temp Pulse Resp BP Pulse Ox 09/20/16 06:32 97.7 F 51 16 110/66 92 09/20/16 03:31 97.8 F 55 18 115/70 96 Intake and Output 09/19/16 09/20/16 09/20/16 23:59 07:59 15:59 Intake Total 1200 / 1200 100 / 100 635 / 635 Output Total 685 / 705 430 / 430 150 / 150 Balance 515 / 495 -330 / -330 485 / 485 Intake: IV Fluids 1100 / 1100 100 / 100 635 / 635 0.9 % Sodium Chloride 1, 1000 / 1000 635 / 635 000 ML @ 50 mls/hr IVC . Q20H [facility] Rx#:[id number] Zosyn 3.375 GM In 100 / 100 100 / 100 Dextrose 5% (Minibag+) 100 ML 100 ML @ 25 mls/hr IVPB Q8H [facility] Rx#: [id number] Oral 100 / 100 0 / 0 Output: Urine 675 / 675 400 / 400 150 / 150 Wound Drainage Right Lower Abdomen Other: # Voids 4 Weight 114 kg Blood Glucose* 249 129 Patient Weight 09/20/16 23:59 Weight 114 kg - General physical appearance obese - Eyes normal ocular movement - Neck Neck exam: trachea midline - Respiratory normal respiratory effort, clear to auscultation - Cardiovascular Cardiovascular exam: Present: RRR - Abdomen Abdomen: Present: bowel sounds present (faint), tender (incisional), wound ( midline insicion - c/d/ axel intact without dehiscence, erythema or drainage. VIKRAM drain intact (30cc overnight). Trochar incisions healing well. ) . Absent: distended - Neurologic CN 2-12 grossly intact - Psychiatric oriented to time, oriented to person, oriented to place, speech is normal, memory intact - Labs 09/20/16 04:33 09/20/16 04:33 Diabetes panel 09/20/16 Range/Units 04:33 Sodium 139 (136-145) mEq/L Potassium 3.7 (3.5-4.5) mEq/L Chloride 109 (98-109) mEq/L Carbon Dioxide 24 (19-29) mEq/L BUN 19 (8-26) mg/dL Creatinine 0.87 (0.72-1.25) mg/dL Glucose 32 L* (70-99) mg/dL Calcium 8.5 L (8.6-10.8) mg/dL AST 66 H (5-34) Units/L ALT 48 (0-55) Units/L Alkaline Phosphatase 93 (38-126) Units/L Albumin 2.4 L (3.5-5.0) g/dL Calcium panel 09/20/16 Range/Units 04:33 Calcium 8.5 L (8.6-10.8) mg/dL Albumin 2.4 L (3.5-5.0) g/dL Pituitary panel 09/20/16 Range/Units 04:33 Sodium 139 (136-145) mEq/L Potassium 3.7 (3.5-4.5) mEq/L Chloride 109 (98-109) mEq/L Carbon Dioxide 24 (19-29) mEq/L BUN 19 (8-26) mg/dL Creatinine 0.87 (0.72-1.25) mg/dL Glucose 32 L* (70-99) mg/dL Calcium 8.5 L (8.6-10.8) mg/dL Adrenal panel 09/20/16 Range/Units 04:33 Sodium 139 (136-145) mEq/L Potassium 3.7 (3.5-4.5) mEq/L Chloride 109 (98-109) mEq/L Carbon Dioxide 24 (19-29) mEq/L BUN 19 (8-26) mg/dL Creatinine 0.87 (0.72-1.25) mg/dL Glucose 32 L* (70-99) mg/dL Calcium 8.5 L (8.6-10.8) mg/dL Total Bilirubin 0.5 (0.2-1.2) mg/dL AST 66 H (5-34) Units/L ALT 48 (0-55) Units/L Alkaline Phosphatase 93 (38-126) Units/L Albumin 2.4 L (3.5-5.0) g/dL - VTE Documentation of Mechanical Device: Intermittent pneumatic compression device Consult Discharge Plan - Plan Additional Instructions: #1 may shower, no tub bath for 2 weeks #2 wash incisions with soap and water and pat dry daily #3 no lifting, pushing, pulling more than 15 pounds for the next 6 weeks #4 no driving until off narcotics for 24 hours and able to safely react in the car #5 may climb stairs Referrals: Emeli Camara CNP [Advanced Practice Nurse] - 09/25/16 9:30 am Tony Yuan CNP [Primary Care Provider] - 09/25/16 3:20 pm <Kami Wyatt - Last Filed: 09/20/16 14:23> Date of Encounter: 09/20/16 - Assessment and Plan (1) Abdominal pain Current Visit: Yes Status: Acute Qualifiers: Abdominal location: generalized Qualified Code(s): R10.84 - Generalized abdominal pain (2) Acute cholecystitis Current Visit: Yes Status: Acute await return of bowel function = flatus give dulcolax x 1 to see if can stimulate, pt has bowel sounds prn pain control VIKRAM drain teaching is tolerating soft diet, taking home po medication if begins passing flatus ok to dc from surgery standpoint (3) DVT prophylaxis Current Visit: Yes Status: Acute Subjective Patient reports: no new complaints, feels better, still having pain, pain is less, tolerating a regular diet, no flatus, no bowel movement Objective Vital Signs - Last 8 Hours Temp Pulse Resp BP Pulse Ox 09/20/16 11:24 97.8 F 56 16 123/67 93 09/20/16 06:32 97.7 F 51 16 110/66 92 Intake and Output 09/19/16 09/20/16 09/20/16 23:59 07:59 15:59 Intake Total 1200 / 1200 100 / 100 1235 / 1235 Output Total 685 / 705 430 / 430 300 / 300 Balance 515 / 495 -330 / -330 935 / 935 Intake: IV Fluids 1100 / 1100 100 / 100 635 / 635 0.9 % Sodium Chloride 1, 1000 / 1000 635 / 635 000 ML @ 50 mls/hr IVC . Q20H [facility] Rx#:[id number] Zosyn 3.375 GM In 100 / 100 100 / 100 Dextrose 5% (Minibag+) 100 ML 100 ML @ 25 mls/hr IVPB Q8H [facility] Rx#: [id number] Oral 100 / 100 0 / 0 600 / 600 Output: Urine 675 / 675 400 / 400 300 / 300 Wound Drainage 30 / 30 Right Lower Abdomen 30 30 Other: Meal Lunch Percent of Meal Consumed 100% # Voids 4 Weight 114 kg Blood Glucose* 249 129 91 Patient Weight 09/20/16 23:59 Weight 114 kg - General physical appearance well developed, well nourished, no distress, obese - Eyes PERRL, normal ocular movement - ENT normal mucosa, normocephalic - Neck Neck exam: trachea midline - Respiratory clear to auscultation - Cardiovascular Cardiovascular exam: Present: RRR - Abdomen Abdomen: Present: bowel sounds present, tender Additional Comments: VIKRAM serosang - Incision Incision: Present: clean and dry, intact - Integumentary no rash, no growths - Neurologic CN 2-12 grossly intact - Musculoskeletal normal posture - Psychiatric oriented to time, memory intact - Labs 09/20/16 04:33 09/20/16 04:33 Short CBC 09/20/16 Range/Units 04:33 WBC 9.7 (4.3-11.1) K/mcL Hgb 12.8 L (12.9-16.9) g/dL Hct 38.1 (37.5-50.1) % Plt Count 186 (140-400) K/mcL Neutrophils # 7.9 (1.6-8.9) K/mcL BMP 09/20/16 Range/Units 04:33 Sodium 139 (136-145) mEq/L Potassium 3.7 (3.5-4.5) mEq/L Chloride 109 (98-109) mEq/L Carbon Dioxide 24 (19-29) mEq/L BUN 19 (8-26) mg/dL Creatinine 0.87 (0.72-1.25) mg/dL Glucose 32 L* (70-99) mg/dL Calcium 8.5 L (8.6-10.8) mg/dL Liver Function 09/20/16 Range/Units 04:33 Total Bilirubin 0.5 (0.2-1.2) mg/dL AST 66 H (5-34) Units/L ALT 48 (0-55) Units/L Alkaline Phosphatase 93 (38-126) Units/L Albumin 2.4 L (3.5-5.0) g/dL Vital Signs Temp Pulse Resp BP Pulse Ox 09/20/16 11:24 97.8 F 56 16 123/67 93 09/20/16 06:32 97.7 F 51 16 110/66 92 09/20/16 03:31 97.8 F 55 18 115/70 96 09/19/16 23:49 97.7 F 58 19 115/72 97 09/19/16 20:02 97.9 F 55 18 113/72 97 09/19/16 16:30 98.1 F 58 16 129/68 93 Intake and Output 09/19/16 09/20/16 09/20/16 23:59 07:59 15:59 Intake Total 1200 / 1200 100 / 100 1235 / 1235 Output Total 705 / 705 430 / 430 300 / 300 Balance 495 / 495 -330 / -330 935 / 935 Intake: IV Fluids 1100 / 1100 100 / 100 635 / 635 0.9 % Sodium Chloride 1, 1000 / 1000 635 / 635 000 ML @ 50 mls/hr IVC . Q20H [facility] Rx#:[id number] Zosyn 3.375 GM In 100 / 100 100 / 100 Dextrose 5% (Minibag+) 100 ML 100 ML @ 25 mls/hr IVPB Q8H [facility] Rx#: [id number] Oral 100 / 100 0 / 0 600 / 600 Output: Urine 675 / 675 400 / 400 300 / 300 Wound Drainage 30 / 30 30 / 30 Right Lower Abdomen 30 30 / 30 Other: Meal Lunch Percent of Meal Consumed 100% # Voids 4 Weight 114 kg Blood Glucose* 249 129 91 Patient Weight 09/20/16 23:59 Weight 114 kg - Attending Attestation I examined this patient and my medical decision-making was reviewed with the [employer]/PA/Advanced Practice Nurse/Resident Physician. I agree with the documented findings, disposition and treatment plan as described except to the extent set forth below.
[2016-09-20] MEDS ORDERED: Bisacodyl 10 MG RECTAL SUPPOSITORY RC ONE (12:51)
[2016-09-21] MEDS: Piperacillin/Tazobactam 3.375 GM in D5% in Water (Mini-Bag+) 100 ML IVPB SCH ×2 (03:00→09:37)
[2016-09-21 05:34] LABS: Basophils % 0.3 %; Eosinophils # 0.2 K/mcL (0.0-0.6); Eosinophils % 2.1 %; Hematocrit 38.1 % (37.5-50.1); Hemoglobin 12.8 g/dL (12.9-16.9); Immature Granulocytes % 0.3 % (0-4); Lymphocytes # 1.3 K/mcL (0.6-4.6); Lymphocytes % 17.5 %; Mean Corpuscular HGB Conc 33.6 g/dL (31.6-35.5); Mean Corpuscular Hemoglobin 30.7 pg (28.0-33.3); Mean Corpuscular Volume 91.4 fL (83.0-100.0); Mean Platelet Volume 9.7 fL (9.4-12.4); Monocytes # 0.6 K/mcL (0.0-1.3); Neutrophils # 5.5 K/mcL (1.6-8.9); Platelet Count 174 K/mcL (140-400); Red Blood Count 4.17 M/mcL (4.19-5.50); Red Cell Distribution Width 13.9 % (11.5-14.5); Segmented Neutrophils % 71.8 %
[2016-09-21] MEDS: *HR* Heparin 5,000 UNIT/ML VIAL SQ SCH (05:39)
[2016-09-21 05:58] LABS: Alanine Aminotransferase 55 Units/L (0-55); Albumin 2.3 g/dL (3.5-5.0); Albumin/Globulin Ratio 0.7 (1.1-2.2); Alkaline Phosphatase 98 Units/L (38-126); Aspartate Amino Transferase 57 Units/L (5-34); BUN/Creatinine Ratio 18 (6-26); Bilirubin,Total 0.5 mg/dL (0.2-1.2); Blood Urea Nitrogen 18 mg/dL (8-26); Calcium 8.5 mg/dL (8.6-10.8); Carbon Dioxide 26 mEq/L (19-29); Chloride 109 mEq/L (98-109); Globulin 3.5 g/dL (2.4-3.5); Glucose 157 mg/dL (70-99); Osmolality,Calculated 293 (280-300); Potassium 3.9 mEq/L (3.5-4.5); Sodium 139 mEq/L (136-145); Total Protein 5.8 g/dL (6.0-8.3); eGFR For African Americans > 60 (> 60); eGFR For Non-African Americans > 60 (> 60)
[2016-09-21] MEDS: Insulin LISPRO 300 UNITS/3 ML VIAL SQ SCH ×3 (07:43→17:35)
[2016-09-21 07:46] VITALS: BP 139/59
--- NOTE | 2016-09-21 08:07 | Discharge Summary ---
Date of Encounter: 09/21/16 Time of Encounter: 08:05 - Discharge Diagnosis (1) Acute cholecystitis with chronic cholecystitis Priority: Primary Status: Acute Comments: Acute gangrenous cholecystitis status post Laprascopic Choleocystectomy and primary repair of umbilical hernia. (2) Umbilical hernia without obstruction and without gangrene Priority: Primary Status: Chronic (3) Cholelithiasis Priority: Primary Status: Acute Qualifiers: Cholelithiasis location: gallbladder Cholecystitis presence: with cholecystitis Cholecystitis acuity: acute and chronic Biliary obstruction: without biliary obstruction Qualified Code(s): K80.12 - Calculus of gallbladder with acute and chronic cholecystitis without obstruction (4) Catherine infection of genital region Priority: Secondary Status: Acute Comments: Stop fluconazole (5) CAD (coronary artery disease) Priority: Secondary Status: Chronic Qualifiers: Coronary Disease-Associated Artery/Lesion type: [place] artery [place] vs. transplanted heart: [place] heart Associated angina: without angina Qualified Code(s): I25.10 - Atherosclerotic heart disease of [place] coronary artery without angina pectoris (6) Hypertension Priority: Secondary Status: Chronic Qualifiers: Hypertension type: essential hypertension Qualified Code(s): I10 - Essential (primary) hypertension (7) Type 2 diabetes mellitus Priority: Secondary Status: Chronic Qualifiers: Diabetes mellitus complication status: without complication Diabetes mellitus chcf insulin use: with chcf use Qualified Code(s): E11.9 - Type 2 diabetes mellitus without complications; Z79.4 - MCC (current) use of insulin (8) Renal calculi Priority: Secondary Status: Chronic (9) UTI (urinary tract infection) Priority: Secondary Status: Acute Comments: Urine culture showed grossly mixed brigida. Qualifiers: Urinary tract infection type: acute cystitis Hematuria presence: without hematuria Qualified Code(s): N30.00 - Acute cystitis without hematuria (10) Bladder wall thickening Priority: Secondary Status: Acute (11) Elevated troponin Priority: Secondary Status: Acute - Discharge Medications Prescriptions: Amoxicillin/Clavulanate [Augmentin] 875 mg PO BIDWM #6 tablet Home Medications: Aspirin Enteric Coated [Aspirin EC] 81 mg PO DAILY 02/08/15 [History] Gabapentin [Neurontin] 300 mg PO TID 02/08/15 [History] Insulin Glargine [Lantus] 100 units SQ QPM 02/08/15 [History] Levothyroxine [Synthroid] 50 mcg PO QAM 02/08/15 [History] Potassium Citrate [Urocit-K] 10 meq PO BID 02/08/15 [History] Tamsulosin [Flomax] 0.4 mg PO DAILY 02/08/15 [History] Atorvastatin Calcium [Lipitor] 80 mg PO HS 09/16/16 [History] BuPROPion SR (12 HR) [Wellbutrin SR] 200 mg PO BID 09/16/16 [History] Losartan Potassium [Cozaar] 50 mg PO DAILY 09/16/16 [History] Metformin HCl [Metformin HCl ER] 1,000 mg PO BID 09/16/16 [History] Anshu/Poly/HC *EAR* SOLN [Cortisporin *EAR* SOLN] 3 - 4 drop LEFT EAR BID [History] Nystatin POWDER [Nystop] 1 appl TP BID 09/16/16 [History] Sertraline [Zoloft] 100 mg PO DAILY 09/16/16 [History] Docusate [Colace] 100 mg PO BID #30 capsule 09/19/16 [Rx] OxyCODONE/APAP 5/325 [Percocet 5/325 MG] 1 each PO Q4HR PRN #30 tablet 09/19/16 [Rx] Amoxicillin/Clavulanate [Augmentin] 875 mg PO BIDWM #6 tablet 09/21/16 [Rx] Allergies/Adverse Reactions: Allergies aspirin [ASA] Allergy (Verified 11/21/14 12:58) Swelling of Lip/Tongue/Throat metoprolol [From Lopressor] Allergy (Verified 11/21/14 12:58) See Comments No reaction listed per H&P morphine Adverse Reaction (Verified 09/16/16 12:26) See Comments Vomiting Date of admission: 09/19/16 16:59 Primary care physician: Tony Yuan CNP - Patient Status Disposition: Home Health Service Condition: Fair - Discharge Instructions Follow Up With: Emeli Camara CNP [Advanced Practice Nurse] - 09/25/16 9:30 am Tony Yuan CNP [Primary Care Provider] - 09/25/16 3:20 pm Additional Instructions: Follow-up with primary care physician within 7 days. Complete 3 more days of Augmentin. Follow up with urology within the next 2 weeks. Follow-up with surgery within the next 7 days. Instructions per surgical service: #1 may shower, no tub bath for 2 weeks #2 wash incisions with soap and water and pat dry daily #3 no lifting, pushing, pulling more than 15 pounds for the next 6 weeks #4 no driving until off narcotics for 24 hours and able to safely react in the car #5 may climb stairs - Diet and Activity Activity: increase activity as tolerated Diet: diabetic diet Hospital course: Mr. Pate is a 71 year old male with past medical history of diabetes type 2 insulin-dependent, GERD, hypertension, coronary artery disease status post stents, arthritis, hypothyroidism, depression and history of kidney stones. Patient presented to the ED with complaints of left-sided chest pain and left flank pain. Symptoms started about 2 days prior to his admission and gradually worsened. Patient apparently woke up and had about 4 episodes of vomiting and complained about severe chest pain which was radiating to left upper extremity. In the ER patient was given Dilaudid and aspirin, and patient's pain now resolved. Patient had an [place] and 2 stents in the past. He was also recently diagnosed with a fungal infection in his groin and was prescribed fluconazole by his PCP. His CT of the abdomen revealed left renal nonobstructing 13 mm calculus with no hydroureteronephrosis. Patient was evaluated by the urology service due to bladder wall thickening mainly on the left side. He will follow up with urology in order to consider a cystoscopy/bladder biopsy after his discharge. Cardiology was consulted as patient was admitted with chest pain the echocardiogram showed an ejection fraction of 60% with normal wall motion, cardiology signed off. During his hospitalization the patient was diagnosed with acute cholecystitis for which he underwent a laparoscopic cholecystectomy performed by Dr. Stephenson. Initially he was started on Rocephin which was switched to Zosyn. Patient has not experienced any complications, still has a drain in the right upper quadrant which will be removed by surgery at a later time. His is stable to be discharged at this point - Time Spent with Patient Total time spent providing and/or coordinating discharge services: Greater than 30 minutes (40 min) - Constitutional Vitals: Temp Pulse Resp BP Pulse Ox 98.8 F 54 18 139/59 95 09/21/16 07:44 09/21/16 07:44 09/21/16 07:44 09/21/16 07:44 09/21/16 07:44 General appearance: Present: A&O X 3, pleasant, no acute distress, obese. Absent: answers questions appropriately Exam: General appearance: Present: A&O X 3, pleasant, no acute distress, obese. Absent: answers questions appropriately - Head Head exam: Present: atraumatic, normocephalic - Eye Eye exam: Present: PERRL, conjuntiva pink, sclera anicteric Pupils: Present: PERRL - Neck Neck exam general surgery: Present: supple, trachea midline. Absent: lymphadenopathy - Respiratory Respiratory exam: Present: decreased breath sounds, CTAB. Absent: accessory muscle use, rales, rhonchi, wheezes - Cardiovascular Cardiovascular exam: Present: RRR, +S1, +S2. Absent: diastolic murmur, gallop, rubs, systolic murmur - GI/Abdominal GI/Abdominal exam: Present: distended (Right upper quadrant drain, surgical port wounds without signs of infection), normal bowel sounds, soft, no peritoneal signs. Absent: tenderness - Extremities Exam Extremities exam: Present: warm, radial pulses palpable and symetrical. Absent : calf tenderness, cyanotic, pedal edema - Neurological Exam Neurological exam: Present: CN II-XII intact, oriented X3, no focal deficits. Absent: pronater drift, facial droop, speech deficit - Skin Skin exam: Present: dry, intact - VTE Documentation of Mechanical Device: Intermittent pneumatic compression device
--- NOTE | 2016-09-21 08:26 | Physician Discharge Referral ---
Home Health/Hosp Referral Info Transfer to: Home Health Provider in Charge Post Discharge: PCP - Diagnosis (1) Acute cholecystitis with chronic cholecystitis Status: Acute (2) Umbilical hernia without obstruction and without gangrene Status: Chronic (3) Cholelithiasis Status: Acute (4) Catherine infection of genital region Status: Acute (5) CAD (coronary artery disease) Status: Chronic (6) Hypertension Status: Chronic (7) Type 2 diabetes mellitus Status: Chronic (8) Renal calculi Status: Chronic (9) UTI (urinary tract infection) Status: Acute (10) Bladder wall thickening Status: Acute (11) Elevated troponin Status: Acute - Respiratory Orders Smoking Cessation: Smoking cessation has been advised. For more information, call the [employer] Tobacco Quit Line at 2-370-LQME-NOW. - Diet/Nutrition Diet/Nutrition: List: Diabetic diet, low fat and low cholesterol - Services Needed Following services are medically necessary services: Home Health Aide, Physical Therapy, Occupational Therapy Home Care Orders: Follow-up with primary care physician within 7 days. Complete 3 more days of Augmentin. Follow up with urology within the next 2 weeks. Follow-up with surgery within the next 7 days. Instructions per surgical service: #1 may shower, no tub bath for 2 weeks #2 wash incisions with soap and water and pat dry daily #3 no lifting, pushing, pulling more than 15 pounds for the next 6 weeks #4 no driving until off narcotics for 24 hours and able to safely react in the car #5 may climb stairs - Transfer Medications Prescriptions: Amoxicillin/Clavulanate [Augmentin] 875 mg PO BIDWM #6 tablet Home Medications: Aspirin Enteric Coated [Aspirin EC] 81 mg PO DAILY 02/08/15 [History] Gabapentin [Neurontin] 300 mg PO TID 02/08/15 [History] Insulin Glargine [Lantus] 100 units SQ QPM 02/08/15 [History] Levothyroxine [Synthroid] 50 mcg PO QAM 02/08/15 [History] Potassium Citrate [Urocit-K] 10 meq PO BID 02/08/15 [History] Tamsulosin [Flomax] 0.4 mg PO DAILY 02/08/15 [History] Atorvastatin Calcium [Lipitor] 80 mg PO HS 09/16/16 [History] BuPROPion SR (12 HR) [Wellbutrin SR] 200 mg PO BID 09/16/16 [History] Losartan Potassium [Cozaar] 50 mg PO DAILY 09/16/16 [History] Metformin HCl [Metformin HCl ER] 1,000 mg PO BID 09/16/16 [History] Anshu/Poly/HC *EAR* SOLN [Cortisporin *EAR* SOLN] 3 - 4 drop LEFT EAR BID [History] Nystatin POWDER [Nystop] 1 appl TP BID 09/16/16 [History] Sertraline [Zoloft] 100 mg PO DAILY 09/16/16 [History] Docusate [Colace] 100 mg PO BID #30 capsule 09/19/16 [Rx] OxyCODONE/APAP 5/325 [Percocet 5/325 MG] 1 each PO Q4HR PRN #30 tablet 09/19/16 [Rx] Amoxicillin/Clavulanate [Augmentin] 875 mg PO BIDWM #6 tablet 09/21/16 [Rx] Allergies/Adverse Reactions: Allergies aspirin [ASA] Allergy (Verified 11/21/14 12:58) Swelling of Lip/Tongue/Throat metoprolol [From Lopressor] Allergy (Verified 11/21/14 12:58) See Comments No reaction listed per H&P morphine Adverse Reaction (Verified 09/16/16 12:26) See Comments Vomiting Certification: Further, I certify that my clinical findings support that this patient is homebound (i.e. absences from home require considerable and taxing effort and are for medical reasons or mormonism services or infrequently or short duration when for other reasons) because: Homebound Reason: Patient requires assistance of a person or device to safely leave home Attestation: My signature below is to certify that this patient is under my care and that I, or nurse practitioner, or a physician's stores assistant working with me, has a face-to -face encounter with this patient.
--- NOTE | 2016-09-21 09:14 | Discharge Summary ---
<Raoul Moore - Last Filed: 09/21/16 09:47> Date of Encounter: 09/21/16 Time of Encounter: 09:12 - Discharge Diagnosis (1) Acute cholecystitis Priority: Primary Status: Acute (2) Umbilical hernia without obstruction and without gangrene Priority: Primary Status: Chronic - Discharge Medications Prescriptions: Amoxicillin/Clavulanate [Augmentin] 875 mg PO BIDWM #14 tablet Home Medications: Aspirin Enteric Coated [Aspirin EC] 81 mg PO DAILY 02/08/15 [History] Gabapentin [Neurontin] 300 mg PO TID 02/08/15 [History] Insulin Glargine [Lantus] 100 units SQ QPM 02/08/15 [History] Levothyroxine [Synthroid] 50 mcg PO QAM 02/08/15 [History] Potassium Citrate [Urocit-K] 10 meq PO BID 02/08/15 [History] Tamsulosin [Flomax] 0.4 mg PO DAILY 02/08/15 [History] Atorvastatin Calcium [Lipitor] 80 mg PO HS 09/16/16 [History] BuPROPion SR (12 HR) [Wellbutrin SR] 200 mg PO BID 09/16/16 [History] Losartan Potassium [Cozaar] 50 mg PO DAILY 09/16/16 [History] Metformin HCl [Metformin HCl ER] 1,000 mg PO BID 09/16/16 [History] Anshu/Poly/HC *EAR* SOLN [Cortisporin *EAR* SOLN] 3 - 4 drop LEFT EAR BID [History] Nystatin POWDER [Nystop] 1 appl TP BID 09/16/16 [History] Sertraline [Zoloft] 100 mg PO DAILY 09/16/16 [History] Docusate [Colace] 100 mg PO BID #30 capsule 09/19/16 [Rx] OxyCODONE/APAP 5/325 [Percocet 5/325 MG] 1 each PO Q4HR PRN #30 tablet 09/19/16 [Rx] Amoxicillin/Clavulanate [Augmentin] 875 mg PO BIDWM #14 tablet 09/21/16 [Rx] Allergies/Adverse Reactions: Allergies aspirin [ASA] Allergy (Verified 11/21/14 12:58) Swelling of Lip/Tongue/Throat metoprolol [From Lopressor] Allergy (Verified 11/21/14 12:58) See Comments No reaction listed per H&P morphine Adverse Reaction (Verified 09/16/16 12:26) See Comments Vomiting General Surgery Exam Initial Vital Signs Temp Pulse Resp BP Pulse Ox 98.0 F 58 18 145/67 100 09/16/16 07:46 09/16/16 07:46 09/16/16 07:46 09/16/16 07:46 09/16/16 07:46 - General physical appearance no distress, obese - Eyes normal ocular movement - Neck trachea midline - Respiratory normal respiratory effort, clear to auscultation - Cardiovascular Cardiovascular exam: Present: RRR, no murmurs/rubs/gallops - Abdomen Abdomen general surgery: Present: bowel sounds present, soft, non tender, wound (VIKRAM drain intact) - Incision Incision: Present: clean and dry, intact - Neurologic Present: CN 2-12 grossly intact - Psychiatric Psychiatric general surgery: Present: appropriate, oriented to person, oriented to place, oriented to time, speech is normal, memory intact - Additional Findings Short CBC 09/21/16 Range/Units 04:55 WBC 7.7 (4.3-11.1) K/mcL Hgb 12.8 L (12.9-16.9) g/dL Hct 38.1 (37.5-50.1) % Plt Count 174 (140-400) K/mcL Neutrophils # 5.5 (1.6-8.9) K/mcL BMP 09/21/16 Range/Units 04:55 Sodium 139 (136-145) mEq/L Potassium 3.9 (3.5-4.5) mEq/L Chloride 109 (98-109) mEq/L Carbon Dioxide 26 (19-29) mEq/L BUN 18 (8-26) mg/dL Creatinine 0.99 (0.72-1.25) mg/dL Glucose 157 H (70-99) mg/dL Calcium 8.5 L (8.6-10.8) mg/dL Liver Function 09/21/16 Range/Units 04:55 Total Bilirubin 0.5 (0.2-1.2) mg/dL AST 57 H (5-34) Units/L ALT 55 (0-55) Units/L Alkaline Phosphatase 98 (38-126) Units/L Albumin 2.3 L (3.5-5.0) g/dL Vital Signs Temp Pulse Resp BP Pulse Ox 09/21/16 07:44 98.8 F 54 18 139/59 95 09/20/16 23:03 98.1 F 59 16 127/65 94 09/20/16 20:50 98.3 F 66 15 138/51 95 09/20/16 11:24 97.8 F 56 16 123/67 93 Intake and Output 09/20/16 09/21/16 09/21/16 23:59 07:59 15:59 Intake Total 340 / 340 Output Total 477 / 477 Balance 255 / 255 -477 / -477 Intake: IV Fluids 100 / 100 Zosyn 3.375 GM In 100 / 100 Dextrose 5% (Minibag+) 100 ML 100 ML @ 25 mls/hr IVPB Q8H [facility] Rx#: [id number] Oral 240 / 240 Output: Urine 0 / 0 425 / 425 Wound Drainage / 52 / 52 Right Lower Abdomen / 52 / 52 Other: Meal Dinner Percent of Meal Consumed 0% Stool Size Large Stool Consistency loose Stool Color Brown # Bowel Movements 0 # Bowel Movement Diapers 1 Blood Glucose* 172 100 Date of admission: 09/19/16 16:59 Primary care physician: Tony Yuan CNP - Patient Status Disposition: Home Health Service Condition: Fair - Discharge Instructions Follow Up With: Emeli Camara CNP [Advanced Practice Nurse] - 09/25/16 9:30 am Tony Yuan CNP [Primary Care Provider] - 09/25/16 3:20 pm Additional Instructions: Follow-up with primary care physician within 7 days. Complete 7 more days of Augmentin. Follow up with urology within the next 2 weeks. Follow-up with surgery within the next 7 days. Instructions per surgical service: #1 may shower, no tub bath for 2 weeks #2 wash incisions with soap and water and pat dry daily #3 no lifting, pushing, pulling more than 15 pounds for the next 6 weeks #4 no driving until off narcotics for 24 hours and able to safely react in the car #5 may climb stairs - Hospital Course Hospital course: Mr. Pate is a 71 year old male who presented for a laproscopic choleocystectomy performed by Dr. Stephenson. Initially he was started on Rocephin which was switched to Zosyn. Patient has not experienced any complications, still has a drain in the right upper quadrant which will be removed by surgery at a later time. His discomfort is controlled with the current regimen. He has ambulating, voiding, and tolerating diet without difficulty. We'll begin discharge planning with patient follow-up in office on September 25 at 9:30 am. - Time Spent with Patient Total time spent providing and/or coordinating discharge services: Labs on day of discharge: Labs from last 24 hours 09/21/16 09/21/16 09/20/16 04:55 04:55 20:10 WBC 7.7 RBC 4.17 L Hgb 12.8 L Hct 38.1 MCV 91.4 MCH 30.7 MCHC 33.6 RDW 13.9 Plt Count 174 MPV 9.7 Immature Gran % 0.3 Seg Neutrophils % 71.8 Lymphocytes % 17.5 Monocytes % 8.0 Eosinophils % 2.1 Basophils % 0.3 Neutrophils # 5.5 Lymphocytes # 1.3 Monocytes # 0.6 Eosinophils # 0.2 Basophils # 0.0 Sodium 139 Potassium 3.9 Chloride 109 Carbon Dioxide 26 BUN 18 Creatinine 0.99 Est GFR ( Amer) > 60 Est GFR (Non-Af Amer) > 60 BUN/Creatinine Ratio 18 Glucose 157 H POC Glucose 172 H Calculated Osmolality 293 Calcium 8.5 L Total Bilirubin 0.5 AST 57 H ALT 55 Alkaline Phosphatase 98 Serum Total Protein 5.8 L Albumin 2.3 L Globulin 3.5 Albumin/Globulin Ratio 0.7 L 09/20/16 09/20/16 16:44 11:26 WBC RBC Hgb Hct MCV MCH MCHC RDW Plt Count MPV Immature Gran % Seg Neutrophils % Lymphocytes % Monocytes % Eosinophils % Basophils % Neutrophils # Lymphocytes # Monocytes # Eosinophils # Basophils # Sodium Potassium Chloride Carbon Dioxide BUN Creatinine Est GFR ( Amer) Est GFR (Non-Af Amer) BUN/Creatinine Ratio Glucose POC Glucose 141 H 91 H Calculated Osmolality Calcium Total Bilirubin AST ALT Alkaline Phosphatase Serum Total Protein Albumin Globulin Albumin/Globulin Ratio <Kami Wyatt - Last Filed: 09/21/16 14:15> Date of Encounter: 09/21/16 - Discharge Diagnosis (1) Abdominal pain Status: Acute Qualifiers: Abdominal location: generalized Qualified Code(s): R10.84 - Generalized abdominal pain (2) Acute cholecystitis Status: Acute (3) DVT prophylaxis Status: Acute General Surgery Exam Initial Vital Signs Temp Pulse Resp BP Pulse Ox 98.0 F 58 18 145/67 100 09/16/16 07:46 09/16/16 07:46 09/16/16 07:46 09/16/16 07:46 09/16/16 07:46 Date of admission: 09/19/16 16:59 Primary care physician: Tony Yuan CNP - Hospital Course Hospital course: Mr. Pate is a 71 year old male - Time Spent with Patient Total time spent providing and/or coordinating discharge services: Labs on day of discharge: Labs from last 24 hours 09/21/16 09/21/16 09/20/16 04:55 04:55 20:10 WBC 7.7 RBC 4.17 L Hgb 12.8 L Hct 38.1 MCV 91.4 MCH 30.7 MCHC 33.6 RDW 13.9 Plt Count 174 MPV 9.7 Immature Gran % 0.3 Seg Neutrophils % 71.8 Lymphocytes % 17.5 Monocytes % 8.0 Eosinophils % 2.1 Basophils % 0.3 Neutrophils # 5.5 Lymphocytes # 1.3 Monocytes # 0.6 Eosinophils # 0.2 Basophils # 0.0 Sodium 139 Potassium 3.9 Chloride 109 Carbon Dioxide 26 BUN 18 Creatinine 0.99 Est GFR ( Amer) > 60 Est GFR (Non-Af Amer) > 60 BUN/Creatinine Ratio 18 Glucose 157 H POC Glucose 172 H Calculated Osmolality 293 Calcium 8.5 L Total Bilirubin 0.5 AST 57 H ALT 55 Alkaline Phosphatase 98 Serum Total Protein 5.8 L Albumin 2.3 L Globulin 3.5 Albumin/Globulin Ratio 0.7 L 09/20/16 16:44 WBC RBC Hgb Hct MCV MCH MCHC RDW Plt Count MPV Immature Gran % Seg Neutrophils % Lymphocytes % Monocytes % Eosinophils % Basophils % Neutrophils # Lymphocytes # Monocytes # Eosinophils # Basophils # Sodium Potassium Chloride Carbon Dioxide BUN Creatinine Est GFR ( Amer) Est GFR (Non-Af Amer) BUN/Creatinine Ratio Glucose POC Glucose 141 H Calculated Osmolality Calcium Total Bilirubin AST ALT Alkaline Phosphatase Serum Total Protein Albumin Globulin Albumin/Globulin Ratio - Attending Attestation patient not seen today because discharged
[2016-09-21] MEDS: Gabapentin 300 MG CAPSULE PO SCH ×2 (09:39→16:15)
[2016-09-21] MEDS: Pantoprazole 40 MG VIAL IVP SCH (09:39)
[2016-09-21] MEDS: Nystatin POWDER 30 GM BOTTLE TP SCH (09:40)
[2016-09-21] MEDS: BuPROPion SR (12 HR) 100 MG TABLET PO SCH (09:40)
[2016-09-21] MEDS: Potassium Citrate 10 MEQ TABLET.ER PO SCH (09:41)
== END 2016-09-21 18:26 | disposition home health service (06) | DRG 418 ==
LOC: EMEROO 07:36 → 3BNU 07:36 → 3ANU 09-18 17:26
PROVIDERS: ADMIT Family Medicine; ATTEND Internal Medicine